=== PATIENT | male | born 1945 | race Caucasian/White ===

== ENCOUNTER → 2016-12-22 | Outpatient (CLI) | payer MEDICARE ==
--- NOTE | 2016-12-22 08:44 | US ---
EXAMINATION TYPE: US duplex aorta DATE OF EXAM: 12/22/2016 COMPARISON: NONE CLINICAL HISTORY: 71-year-old male Z13.6 Screening For Cardiovascular Disorder. TECHNIQUE: Multiple sonographic images of the abdominal aorta are obtained. FINDINGS: EXAM MEASUREMENTS: Abdominal Aorta: Proximal: 2.0cm Transverse Mid: 2.0cm Transverse, mild fusiform dilatation. Distal: 2.0cm Transverse Bifurcation: Right JOSHUA = 1.1cm Transverse; Left JOSHUA = 1.1cm Transverse Intimal wall thickening with calcification is noted throughout the aorta and common iliac arteries. IMPRESSION: Atherosclerotic changes with mild fusiform dilatation of the mid abdominal aorta up to 2.0 cm. Howeve r, there is no significant ectasia or aneurysm.
== END | disposition home or self-care (01) ==
LOC: RADUSWWP 08:08
PROVIDERS: ATTEND Internal Medicine
DX: I70.0 Atherosclerosis of aorta (principal)
CPT/HCPCS: 93979

== ENCOUNTER → 2020-01-22 | Outpatient (CLI) | payer MEDICARE ==
[~2020-01-22] MED LIST: DOBUTamine DRIP for NUC MED 500 MG in DEXTROSE/WATER 1 250ML.BAG IV ONE
[2020-01-22 10:16] LABS: Basophils % (A) 0 %; Eosinophils # (A) 0.1 k/uL (0-0.7); Eosinophils % (A) 2 %; HCT 53.7 % (39.0-53.0); HGB 16.5 gm/dL (13.0-17.5); Lymphocytes # (A) 1.6 k/uL (1.0-4.8); Lymphocytes % (A) 22 %; MCH 31.9 pg (25.0-35.0); MCHC 30.8 g/dL (31.0-37.0); MCV 103.5 fL (80.0-100.0); Macrocytosis Slight; Mean Platelet Volume 7.1; Monocytes # (A) 0.5 k/uL (0-1.0); Monocytes % (A) 7 %; Neutrophils % (A) 68 %; Platelet Count 263 k/uL (150-450); RBC 5.19 m/uL (4.30-5.90); RDW 13.8 % (11.5-15.5); WBC 7.3 k/uL (3.8-10.6)
[2020-01-22 10:29] LABS: Albumin 4.4 g/dL (3.5-5.0); Calcium 9.6 mg/dL (8.4-10.2); Potassium 4.7 mmol/L (3.5-5.1); Total Bilirubin 0.9 mg/dL (0.2-1.3); Uric Acid 5.9 mg/dL (3.5-8.5)
--- NOTE | 2020-01-22 12:49 | ECHOF ---
Referral Reason:R94.31 Abnormal EKG MEASUREMENTS -------- HEIGHT: 175.3 cm WEIGHT: 64.4 kg BP: RVIDd: 3.6 cm (< 3.3) IVSd: 1.2 cm (0.6 - 1.1) LVIDd: 4.2 cm (3.9 - 5.3) LVPWd: 1.3 cm (0.6 - 1.1) IVSs: 1.5 cm LVIDs: 3.0 cm LVPWs: 1.9 cm LA Diam: 3.8 cm (2.7 - 3.8) Ao Diam: 3.4 cm (2.0 - 3.7) AV Cusp: 1.7 cm (1.5 - 2.6) MV EXCURSION: 17.701 mm (> 18.000) MV EF SLOPE: 81 mm/s (70 - 150) EPSS: 2.2 cm MV E Juancho: 0.67 m/s MV DecT: 289 ms MV A Juancho: 1.06 m/s MV E/A Ratio: 0.63 RAP: 5.00 mmHg RVSP: 34.32 mmHg FINDINGS -------- Sinus rhythm. This was a technically adequate study. The left ventricular size is normal. There is mild concentric left ventricular hypertrophy. Overa ll left ventricular systolic function is normal with, an EF between 55 - 60 %. The right ventricle is mildly enlarged. The left atrium is normal in size. The right atrium is normal in size. Interatrial and interventricular septum intact. The aortic valve is trileaflet and appears structurally normal. There is trace to mild mitral regurgitation. Mild tricuspid regurgitation present. There is borderline pulmonary hypertension. The right ventr icular systolic pressure, as measured by Doppler, is 34.32mmHg. Trace/mild (physiologic) pulmonic regurgitation. The aortic root size is normal. Normal inferior vena cava with normal inspiratory collapse consistent with estimated right atrial pre ssure of 5 mmHg. There is no pericardial effusion. CONCLUSIONS -------- 1. The left ventricular size is normal. 2. There is mild concentric left ventricular hypertrophy. 3. Overall left ventricular systolic function is normal with, an EF between 55 - 60 %. 4. The right ventricle is mildly enlarged. 5. There is trace to mild mitral regurgitation. 6. Mild tricuspid regurgitation present. 7. There is borderline pulmonary hypertension. 8. The right ventricular systolic pressure, as measured by Doppler, is 34.32mmHg. 9. Trace/mild (physiologic) pulmonic regurgitation. 10. There is no pericardial effusion. GRINDER AND HONER OPERATOR AUTOMATIC: Meagan Willard RDCS
--- NOTE | 2020-01-22 14:08 | ECHOS ---
STRESS ECHOCARDIOGRAM INDICATIONS: Abnormal EKG MEDICATIONS: Metformin, lorazepam, labetalol, atorvastatin, irbesartan, minoxidil. BASELINE HEART RATE: 80 BASELINE BLOOD PRESSURE: 140/66 MAXIMUM HEART RATE: 124 MAXIMUM BLOOD PRESSURE: 158/40 85% MPHR: 124 100% MPHR: 146 MAXIMUM STAGE REACHED: 4 TOTAL EXERCISE TIME: 12:45 CLINICAL INFORMATION: Abnormal EKG Baseline EKG revealed normal sinus rhythm with isolated PVCs and nonspecific ST and T- wave changes with dobutamine administration. The heart rate went up from 80 to 124 beats per minute which is 85% of predicted maximal. Patient did not have any significant symptoms. EKG remained inconclusive with nonspecific ST and T-wave changes and rare isolated PVCs were noted. This is therefore an inconclusive dobutamine stress test by EKG criteria with resting EKG changes and no subjective symptoms of angina. Baseline echo images revealed normal wall motion and wall thickening of all segments. With dobutamine administration, there was progressive increase in contractility noted in all segments suggesting that there is no evidence of stress-induced ischemia. FINAL IMPRESSION: 1. By EKG criteria, this is an inconclusive dobutamine stress test because of resting EKG changes. 2. Normal dobutamine stress echocardiogram without evidence of ischemia. MMODL / IJN: [id number] /
[2020-01-23 05:33] LABS: Prostate Specific Antigen 3.7 ng/mL (0.0-6.5)
== END | disposition home or self-care (01) ==
LOC: RADNMMAIN 09:37
PROVIDERS: ATTEND Internal Medicine
DX: I08.1 Rheumatic disorders of both mitral and tricuspid valves (principal); I37.1 Nonrheumatic pulmonary valve insufficiency; R03.0 Elevated blood-pressure reading, without diagnosis of hypertension; R94.31 Abnormal electrocardiogram [ECG] [EKG]; E55.9 Vitamin D deficiency, unspecified; I10 Essential (primary) hypertension; Z12.5 Encounter for screening for malignant neoplasm of prostate
CPT/HCPCS: 93306; 93351; 84153; 80061; 80053; 84550; 85025; 82306; J1250

== ENCOUNTER → 2022-01-26 | Outpatient (CLI) | payer MEDICARE ==
[2022-01-26 11:32] LABS: Chol/HDL Ratio 3.17 Ratio; LDL Cholesterol,Calculated 85.5 mg/dL (0.0-131.0)
== END | disposition home or self-care (01) ==
LOC: LABWHC1 06:59
PROVIDERS: ATTEND Internal Medicine Interventional Cardiology
DX: E78.2 Mixed hyperlipidemia (principal)
CPT/HCPCS: 36415; 80061

== ENCOUNTER → 2022-02-04 | Outpatient (CLI) | payer MEDICARE ==
--- NOTE | 2022-02-05 14:10 | CA ---
Transthoracic Echo Report Name: Lc Tijerina Age: 76 Gender: M : 1945 Exam Date: 02/04/2022 13:27 Exam Location: [place] [facility] Ht (in): 69 Wt (lb): 155 Ordering Physician: Aldo Pugh MD Attending/Referring Phys: Ty Thao PAC [employer] Trader Kamala Olson RDCS Procedure CPT: Indications: hypertention Cardiac Hx: Technical Quality: Fair Contrast 1: Total Dose (mL): Contrast 2: Total Dose (mL): MEASUREMENTS (Male / Female) Normal Values 2D ECHO LV Diastolic Diameter PLAX 3.9 cm 4.2 - 5.9 / 3.9 - 5.3 cm LV Systolic Diameter PLAX 2.6 cm IVS Diastolic Thickness 1.5 cm 0.6 - 1.0 / 0.6 - 0.9 cm LVPW Diastolic Thickness 1.4 cm 0.6 - 1.0 / 0.6 - 0.9 cm LV Relative Wall Thickness 0.7 RV Internal Dim ED PLAX 3.1 cm LA Volume 23.5 cm??? 18 - 58 / 22 - 52 cm??? M-MODE Aortic Root Diameter MM 2.8 cm LA Systolic Diameter MM 3.0 cm LA Ao Ratio MM 1.1 AV Cusp Separation MM 1.8 cm DOPPLER AV Peak Velocity 134.5 cm/s AV Peak Gradient 7.2 mmHg LVOT Peak Velocity 89.0 cm/s LVOT Peak Gradient 3.2 mmHg MV Area PHT 3.7 cm??? Mitral E Point Velocity 69.6 cm/s Mitral A Point Velocity 115.5 cm/s Mitral E to A Ratio 0.6 MV Deceleration Time 205.1 ms MV E' Velocity 7.1 cm/s Mitral E to MV E' Ratio 9.7 TR Peak Velocity 240.7 cm/s TR Peak Gradient 23.2 mmHg Right Ventricular Systolic Press 25.9 mmHg FINDINGS Left Ventricle Moderately increased left ventricular wall thickness. Normal left ventricular systolic function with no obvious regional wall motion abnormalities. Left ventricular ejection fraction is estimated at 55-60 %. Normal left ventricular diastolic filling pattern. Right Ventricle Normal right ventricular size and function. Right ventricular systolic pressure within normal limits. Right Atrium Normal right atrial size. Left Atrium Normal left atrial size. Mitral Valve Structurally normal mitral valve. No evidence for mitral valve prolapse. No mitral stenosis. Trace to mild mitral regurgitation. Mitral annular calcification. Aortic Valve Trileaflet aortic valve. No aortic valve stenosis or regurgitation. Aortic valve sclerosis. Tricuspid Valve Structurally normal tricuspid valve. Mild tricuspid regurgitation. Pulmonic Valve Structurally normal pulmonic valve. Trace pulmonic regurgitation. Pericardium No pericardial effusion. Aorta Normal size aortic root and proximal ascending aorta. CONCLUSIONS Normal LV systolic function Trace mitral regurgitation Mild tricuspid regurgitation Previewed by: Dr. Asad Ludwig MD (Electronically Signed) Final Date: 05 February 2022 14:09
== END | disposition home or self-care (01) ==
LOC: RADECHMAIN 12:31
PROVIDERS: ATTEND Family Medicine
DX: I08.1 Rheumatic disorders of both mitral and tricuspid valves (principal); I16.0 Hypertensive urgency
CPT/HCPCS: 93306

== ENCOUNTER → 2022-06-21 | Outpatient (CLI) | payer MEDICARE ==
[2022-06-21 15:31] LABS: HCT 50.9 % (39.6-50.0); MCH 31.1 pg (27.0-32.0); MCHC 31.4 g/dL (32.0-37.0); Mean Platelet Volume 10.4 fL (9.5-12.2); NRBC Per 100 WBC 0 /100 WBCS (0.0-0.0); Platelet Count 202 X 10*3/uL (140-440); RBC 5.14 X 10*6/uL (4.40-5.60); RDW 13.2 % (11.5-14.5); WBC 7.09 X 10*3/uL (4.50-10.00)
[2022-06-21 15:48] LABS: African American GFR (CKD) 91.7 (60.0-200.0); Anion Gap 10.9 mmol/L (10.00-18.00); Blood Urea Nitrogen 19.7 mg/dL (9.0-27.0); Carbon Dioxide 26.6 mmol/L (20.0-27.5); Non-African American GFR(CKD) 79.2 (60.0-200.0); Potassium 4.5 mmol/L (3.5-5.5)
== END | disposition home or self-care (01) ==
LOC: LABPAT 07:59
PROVIDERS: ATTEND Internal Medicine Interventional Cardiology
DX: Z01.818 Encounter for other preprocedural examination (principal); R94.39 Abnormal result of other cardiovascular function study
CPT/HCPCS: 36415; 80051; 82565; 84520; 85027

== ENCOUNTER → 2022-12-19 | Outpatient (CLI) | payer MEDICARE ==
[2022-12-19 16:24] LABS: ALT 24 U/L (10-49); AST 11 U/L (14-35); Albumin 5.1 d/dL (3.8-4.9); Albumin/Globulin Ratio 2.12 Ratio (1.60-3.17); Alkaline Phosphatase 53 U/L (41-126); BUN/Creat Ratio 24.54 Ratio (12.00-20.00); Blood Urea Nitrogen 31.9 mg/dL (9.0-27.0); Calcium 10.9 mg/dL (8.7-10.3); Carbon Dioxide 27.9 mmol/L (21.6-31.8); Chloride 100 mmol/L (96-109); Globulin 2.4 d/dL (1.6-3.3); Glucose 165 mg/dL (70-110); Potassium 5.5 mmol/L (3.5-5.5); Sodium 141 mmol/L (135-145); Total Bilirubin 0.4 mg/dL (0.3-1.2); Total Protein 7.5 d/dL (6.2-8.2)
[2022-12-19 17:36] LABS: Basophils # (A) 0.05 X 10*3/uL (0.00-0.10); Basophils % (A) 0.5 %; Eosinophils # (A) 0.17 X 10*3/uL (0.04-0.35); Eosinophils % (A) 1.7 %; HCT 50.2 % (39.6-50.0); HGB 16.2 d/dL (13.0-17.0); Lymphocytes # (A) 1.36 X 10*3/uL (0.90-5.00); Lymphocytes % (A) 13.9 %; MCH 32.4 pg (27.0-32.0); MCHC 32.3 d/dL (32.0-37.0); MCV 100.4 FL (80.0-97.0); Mean Platelet Volume 10.3 FL (9.5-12.2); Monocytes # (A) 0.79 X 10*3/uL (0.20-1.00); Monocytes % (A) 8.1 %; NRBC Per 100 WBC 0 X 10*3/uL (0.00-0.01); Neutrophils # (A) 7.35 X 10*3/uL (1.80-7.70); Neutrophils % (A) 75.4 %; Platelet Count 254 X 10*3/uL (140-440); RDW 13.2 % (11.5-14.5); WBC 9.76 X 10*3/uL (4.50-10.00)
[2022-12-19 17:38] LABS: INR <0.93 sec (0.93-1.11); Prothrombin Time 9.9 sec (9.9-11.9)
== END | disposition home or self-care (01) ==
LOC: LABPAT 08:55
PROVIDERS: ATTEND Surgery
DX: Z01.812 Encounter for preprocedural laboratory examination (principal); I73.9 Peripheral vascular disease, unspecified; R94.31 Abnormal electrocardiogram [ECG] [EKG]
CPT/HCPCS: 36415; 80053; 85025; 85610; 86850; 86900; 86901; 93005

== ENCOUNTER → 2023-01-18 | Outpatient (CLI) | payer MEDICARE ==
[2023-01-18 20:06] LABS: ALT 27 U/L (10-49); AST 10 U/L (14-35); Albumin 4.8 d/dL (3.8-4.9); Alkaline Phosphatase 48 U/L (41-126); BUN/Creat Ratio 23.57 Ratio (12.00-20.00); C-Peptide 7.65 ng/mL (0.81-3.85); Calcium 10.5 mg/dL (8.7-10.3); Chloride 100 mmol/L (96-109); Globulin 2.4 d/dL (1.6-3.3); Glucose 123 mg/dL (70-110); Sodium 140 mmol/L (135-145); Total Bilirubin 0.3 mg/dL (0.3-1.2); Total Protein 7.2 d/dL (6.2-8.2)
== END | disposition home or self-care (01) ==
LOC: LABWHC1 13:14
PROVIDERS: ATTEND Internal Medicine Endocrinology, Diabetes & Metabolism
DX: E11.65 Type 2 diabetes mellitus with hyperglycemia (principal)
CPT/HCPCS: 36415; 80053; 83519; 84443; 84681

== ENCOUNTER → 2024-06-14 | Outpatient (CLI) | payer MEDICARE ==
--- NOTE | 2024-06-14 11:37 | CTL ---
EXAMINATION TYPE: CT Low Dose Lung DATE OF EXAM ORDERED: 06/14/2024 COMPARISON: None CLINICAL INDICATION: Male, 78 years old with history of Z12.2 Screening; Z87.891 Former smoker; PHH, Former smoker, .5 ppd x 60 years. Quit x 3 months ago., Lung cancer screening, History of Smoking/tob acco use. TECHNIQUE: Low dose computed tomography scan was performed through the chest at 1 mm thick sections a nd reconstructed images in multiple planes at 1 mm and [address] DLP: [address] CTDI: 2.14 mGy Automated exposure control for dose reduction was used. CT DIAGNOSTIC QUALITY: Satisfactory FINDINGS: Nodules: No distinct pulmonary nodule. LUNGS: COPD: Severity: None Fibrosis: Severity: None Lymph nodes: None Other findings: Patchy consolidative opacities throughout the left upper lobe and lingula. RIGHT PLEURAL SPACE: Effusion: None Calcification: None Thickening: None Pneumothorax: None LEFT PLEURAL SPACE: Effusion: None Calcification: None Thickening: None Pneumothorax: None HEART: Heart Size: Normal Coronary Calcification: None Pericardial Effusion: None OTHER FINDINGS: Upper abdomen: None Bony thorax: Bilateral AC joint arthropathy. Multilevel degenerative disc disease. [facility] of the thorac ic spine. No aggressive osseous lesion. Supraclavicular region: None Other: Moderate atherosclerotic calcification of the aorta and its branches. IMPRESSION: Patchy consolidative opacity throughout the left upper lobe and lingula. No distinct pulmonary nodule however underlying nodule is not excluded. Findings suggest pneumonia. Recommend follow-up CT in one month after treatment. CT LUNG RAD AND CT CHEST RECOMMENDATION: Lung Rad 0 Incomplete S Modifier (other clinically significant findings): None [facility], , 06/14/2024 11:35 AM
== END | disposition home or self-care (01) ==
LOC: RADCTMAIN 08:58
PROVIDERS: ATTEND Internal Medicine
DX: Z12.2 Encounter for screening for malignant neoplasm of respiratory organs (principal); Z87.891 Personal history of nicotine dependence
CPT/HCPCS: 71271

== ENCOUNTER 2024-06-27 15:31 | Emergency (ER) | payer MEDICARE ==
[2024-06-27 15:48] VITALS: RESP 18
--- NOTE | 2024-06-27 16:20 | ED ---
Fall HPI - General Chief Complaint: Fall Stated Complaint: fell hit head Time Seen by Provider: 06/27/24 16:19 Source: patient Mode of arrival: wheelchair - History of Present Illness Initial Comments: 78-year-old male presenting with chief complaint of head injury. Patient had a slip and fall this afternoon and fell backwards hitting his head. No loss of consciousness. Patient does take a baby aspirin daily with no other blood thinners. He does have a laceration to the back of his head. He denies any other injuries. - Related Data Home Medications Medication Instructions Recorded Confirmed Aspirin 81 mg PO DAILY 06/23/22 Empagliflozin [Jardiance] 25 mg PO DAILY 06/23/22 Metoprolol Tartrate 25 mg PO DAILY 06/23/22 Pioglitazone HCl 45 mg PO DAILY 06/23/22 Rosuvastatin [Crestor] 20 mg PO DAILY 06/23/22 metFORMIN HCL [Glucophage] 850 mg PO DAILY 06/23/22 Allergies Allergy/AdvReac Type Severity Reaction Status Date / Time Sulfa (Sulfonamide AdvReac Rapid Verified 06/27/24 15:48 Antibiotics) Heart Rate Review of Systems ROS Statement: Those systems with pertinent positive or pertinent negative responses have been documented in the HPI. ROS Other: All systems not noted in ROS Statement are negative. Past Medical History Past Medical History: Diabetes Mellitus, GI Bleed, Hypertension, Pneumonia Additional Past Medical History / Comment(s): Pneumonia-1984, possitive occult in 07/08/15 History of Any Multi-Drug Resistant Organisms: None Reported Past Surgical History: Appendectomy Additional Past Surgical History / Comment(s): colonoscopy 07/15/15 with Caitlyn Ellsworth, cyst removed from right thumb, Orthoscopic surgery in left knee with Dr Pagan in the Past Anesthesia/Blood Transfusion Reactions: No Reported Reaction Additional Past Anesthesia/Blood Transfusion Reaction / Comment(s): Never had a blood transfusion Past Psychological History: Anxiety Past Alcohol Use History: None Reported Past Drug Use History: None Reported - Past Family History Mother Additional Family Medical History / Comment(s): Stroke Father Family Medical History: Cancer Additional Family Medical History / Comment(s): Jaw cancer Brother(s) Family Medical History: No Reported History General Exam - General Exam Comments Initial Comments: Visual Physical Exam Vital signs reviewed General: Well-appearing, nontoxic, no acute distress. Head: Normocephalic, atraumatic Eyes: PERRLA, EOMI ENT: Airway patent Chest: Nonlabored breathing Skin: No visual rash, normal skin tone, scalp laceration Neuro: Alert and oriented 3 Musculoskeletal: No gross abnormalities Limitations: no limitations General appearance: alert, in no apparent distress Expanded Head exam: Present: laceration (2 cm laceration to the posterior scalp) Eye exam: Present: normal appearance, PERRL, EOMI. Absent: periorbital swelling Neck exam: Present: normal inspection. Absent: tenderness Respiratory exam: Absent: respiratory distress Cardiovascular Exam: Present: regular rate Extremities exam: Present: normal inspection Neurological exam: Present: alert, oriented X3 Expanded Eye Response: (4) open spontaneously Motor Response: (6) obeys commands Verbal Response: (5) oriented Teresa Total: 15 Psychiatric exam: Present: normal affect, normal mood Course Vital Signs 06/27/24 15:40 Temperature 99.1 F Pulse Rate 78 Respiratory 18 Rate Blood Pressure 107/63 O2 Sat by Pulse 94 L Oximetry Procedures - Laceration Laceration #1 Consent Obtained: verbal consent Indication: laceration Site: scalp Size (cm): 2 Description: linear Depth: simple, single layer Pre-repair: wound explored Type of Sutures: other ([place]) Number of Sutures: 3 Patient Tolerated Procedure: well Medical Decision Making - Medical Decision Making I performed the quick note portion of this visit, electronically signed Kyra Glez PA-C Was pt. sent in by a medical professional or institution ([facility], [facility], urgent care, hospital, or fdc...) When possible be specific @ -No Did you speak to anyone other than the patient for history (EMS, parent, family, police, friend...)? What history was obtained from this source @ - Did you review nursing and triage notes (agree or disagree)? Why? @ -I reviewed and agree with nursing and triage notes Were old charts reviewed (outside hosp., previous admission, EMS record, old EKG, old radiological studies, urgent care reports/EKG's, fdc records)? Report findings @ -No old charts were reviewed Differential Diagnosis (chest pain, altered mental status, abdominal pain women, abdominal pain men, vaginal bleeding, weakness, fever, dyspnea, syncope, headache, dizziness, GI bleed, back pain, seizure, CVA, palpatations, mental health, musculoskeletal)? @ -Differential includes uncomplicated head injury, concussion, fracture, hemorrhage, not an all-inclusive list EKG interpreted by me (3pts min.). @ -As above X-rays interpreted by me (1pt min.). @ -None done CT interpreted by me (1pt min.). @ -CT shows no acute intracranial process. Right scalp edema no evidence of fracture or acute intracranial process. Nonspecific white matter changes likely secondary to chronic small vessel ischemic disease. No evidence of cervical spine fracture. Mild to moderate multilevel degenerative disc disease. Severe atherosclerosis of the carotid bifurcations correlated with carotid Doppler. Left lung apex airspace opacities correlate for pneumonia U/S interpreted by me (1pt. min.). @ -None done What testing was considered but not performed or refused? (CT, X-rays, U/S, labs)? Why? @ -None What meds were considered but not given or refused? Why? @ -None Did you discuss the management of the patient with other professionals (professionals i.e. , PA, [facility], lab, RT, psych nurse, social economist, kennel attendant, teacher, digital marketing officer, case packer and sealer)? Give summary @ -No Was smoking cessation discussed for >3mins.? @ -No Was critical care preformed (if so, how long)? @ -No Were there social determinants of health that impacted care today? How? (Homelessness, low income, unemployed, alcoholism, drug addiction, transportation, low edu. Level, literacy, decrease access to med. care, halfway, rehab)? @ -No Was there de-escalation of care discussed even if they declined (Discuss DNR or withdrawal of care, Hospice)? DNR status @ -No What co-morbidities impacted this encounter? (DM, HTN, Smoking, COPD, CAD, Canc er, CVA, ARF, Chemo, Hep., AIDS, mental health diagnosis, sleep apnea, morbid obesity)? @ -None Was patient admitted / discharged? Hospital course, mention meds given and route, prescriptions, significant lab abnormalities, going to OR and other pertinent info. @ -78-year-old male presenting with chief complaint of head injury. Patient had a slip and fall and hit the back of his head. No loss of consciousness. He takes aspirin and no other blood thinners. History and physical examination are conducted. Patient does have a laceration to the back of his scalp. Tetanus is updated and laceration is repaired using avinash. CT is negative for acute intracranial process or cervical spine fracture. Patient is noted to have some left upper lobe opacities. reports that the patient had a CT scan recently ordered by his PCP and was started on antibiotics yesterday. and patient are educated on today's findings and supportive management at home. Follow-up with PCP. Report back to ER with any new or worsening symptoms. Discussed return parameters and answered all questions. Patient conveyed verbal understanding and agreed to the plan. I discussed this case in detail with my attending Dr. Perales Undiagnosed new problem with uncertain prognosis? @ -No Drug Therapy requiring intensive monitoring for toxicity (Heparin, Nitro, Insulin, Cardizem)? @ -No Were any procedures done? @ -Laceration repair Diagnosis/symptom? @ -Head injury, scalp laceration Acute, or Chronic, or Acute on Chronic? @ -Acute Uncomplicated (without systemic symptoms) or Complicated (systemic symptoms)? @ -Uncomplicated Side effects of treatment? @ -No Exacerbation, Progression, or Severe Exacerbation? @ -No Poses a threat to life or bodily function? How? (Chest pain, [place], [place], pneumonia, PE, COPD, DKA, ARF, appy, cholecystitis, CVA, Diverticulitis, Homicidal, Suicidal, threat to staff... and all critical care pts) @ -Unlikely Disposition Clinical Impression: Head injury, Scalp laceration Disposition: HOME SELF-CARE Condition: Good Instructions (If sedation given, give patient instructions): Head Injury (ED), Head Laceration (ED), Staple Care (ED) Additional Instructions: Follow-up with PCP. Report back to ER with any new or worsening symptoms, including but not limited to vomiting, increased confusion, difficulty arousing the patient from sleep. Keep the wound clean dry and covered. Do not wet the wound for 24 hours, afterwards you may wash regularly with soap and water. Monitor for signs of infection, including but not limited to redness, swelling, warmth, tenderness, discharge, fever. [place] may be removed in 7 to 10 days Is patient prescribed a controlled substance at d/c from ED?: No Referrals: Sherron Dejesus MD [STAFF PHYSICIAN] - 1-2 days Time of Disposition: 17:32
[2024-06-27] MEDS: DIPH,PERTUS(ACELL)TETVAC-LF 0.5 ML VIAL IM ONE (17:10)
--- NOTE | 2024-06-27 17:13 | CT ---
EXAMINATION TYPE: CT brain cspine wo con DATE OF EXAM: 06/27/2024 4:38 PM COMPARISON: None. CLINICAL INDICATION: Male, 78 years old with history of Head injury; pain after fall, laceration to b ack top side of head, pain TECHNIQUE: Brain: Multiple axial CT images of the brain were obtained without IV contrast. Cspine: Axial CT images from the skull base to the inferior aspect of T2 we obtained without intraven ous contrast. Coronal and sagittal reformatted images were also reviewed. . CT DLP: 1309 mGycm, Automated exposure control for dose reduction was used. FINDINGS: Brain: Extra-axial spaces: No abnormal extra-axial fluid collections. Ventricular system: Dilatation in proportion to cerebral atrophy. Cerebral parenchyma: Cerebral atrophy. No acute intraparenchymal hemorrhage or mass effect. The allen -white junction is well differentiated. Scattered hypoattenuating areas are seen within the white mat ter. Cerebellum: Unremarkable. Mass effect: No evidence of midline shift. Intracranial vasculature: Atherosclerotic calcifications of the intracranial vessels. Soft tissues: Normal. Soft tissue swelling over the right scalp vertex. Calvarium/osseous structures: No depressed skull fracture. Paranasal sinuses and mastoid air cells: Clear. Visualized orbits: Orbital contents are intact. Cervical spine: Fracture: None. Osseous structures: Unremarkable Vertebral alignment: Within normal limits. Spinal canal/Neural Foramina: No evidence of significant spinal canal narrowing. No evidence for sign ificant neural foraminal stenosis. Neck soft tissues: Prevertebral soft tissues are within normal limits. Other: The airway is patent. Severe atherosclerosis of the carotid bifurcations. Left lung apex airsp lorene opacities. IMPRESSION: 1. No acute intracranial process. 2. Right scalp edema No evidence of fracture or acute intracranial process. Nonspecific white matter changes, likely secondary to chronic small vessel ischemic disease. 3. No evidence of cervical spine fracture. 4. Mild to moderate multilevel degenerative disc disease. 5. Severe atherosclerosis of the carotid bifurcations correlated with carotid Doppler. 6. Left lung apex airspace opacities correlate for pneumonia. [facility], , 06/27/2024 5:10 PM
[2024-06-27 17:50] VITALS: BP 110/76; PULSE 72; TEMP 98.4
== END 2024-06-27 17:50 | disposition home or self-care (01) ==
LOC: EC 15:31
DX: S01.01XA Laceration without foreign body of scalp, initial encounter (principal); Z88.2 Allergy status to sulfonamides; Z23 Encounter for immunization; Z79.82 Long term (current) use of aspirin; W01.0XXA Fall on same level from slipping, tripping and stumbling without subsequent striking against object, initial encounter
CPT/HCPCS: 12001; 70450; 72125; 90471; 90715; 99283

== ENCOUNTER → 2024-07-16 | Outpatient (CLI) | payer MEDICARE ==
[2024-07-16 12:01] LABS: African American GFR (CKD) 83 (>60 ml/min/1.73 sqM); Blood Urea Nitrogen 34 mg/dL (9-20); Non-African American GFR(CKD) 72 (>60 ml/min/1.73 sqM)
--- NOTE | 2024-07-16 14:07 | CT ---
CT chest with contrast HISTORY: Follow-up lung abnormality. COMPARISON: CT low-dose thorax 06/14/2024. TECHNIQUE: Multiple axial images were obtained through the thorax following IV contrast administratio n. FINDINGS: There has been interval development of complete collapse and consolidation of the left upper lobe simpson sing the suspicion for a postobstructive pneumonitis and possible underlying bronchial lesion and fur ther evaluation is warranted. There is a 7.8 mm subpleural parenchymal nodule in the left lower lobe posteriorly. The right lung is clear. Great vessels the chest are normal and there is no mediastinal or axillary adenopathy. Limited scanning through the upper abdomen reveals no gross abnormality. There are no focal osseous lesions. IMPRESSION: Left lung infiltrate seen on the prior study has progressed into complete collapse and consolidation of the left upper lobe with marked volume loss. The findings are suspicious for postobstructive pneum onitis with possible underlying obstructing bronchial lesion. Suspicious for underlying malignancy an d further evaluation is warranted. [facility], Workstation: [id number] 07/16/2024 2:04 PM
== END | disposition home or self-care (01) ==
LOC: RADCTMAIN 11:11
PROVIDERS: ATTEND Internal Medicine
DX: R91.8 Other nonspecific abnormal finding of lung field (principal)
CPT/HCPCS: 82565; 84520; 71260; 36415; Q9967

== ENCOUNTER 2024-07-22 09:59 | Inpatient (IN) | payer MEDICARE ==
--- NOTE | 2024-07-22 11:01 | ED ---
Extremity Problem HPI - General Chief complaint: Extremity Problem,Nontraumatic Stated complaint: L knee pain Time Seen by Provider: 07/22/24 10:08 Source: patient, RN notes reviewed Mode of arrival: wheelchair Limitations: no limitations - History of Present Illness Initial comments: This is a 78-year-old male who presents to the emergency department for left leg pain. States that it started yesterday. Denies any injuries. Pain starts behind the knee and travels down the leg. This is painful when he tries to walk or move the leg. Not taking any blood thinners. Additionally, he was previously treated for pneumonia. He had a CT scan done on 07/16/2024 as a follow-up from the month prior that was done as a lung cancer screening. He does have an appointment with his PCP later today to review those results. Denies any chest pain or shortness of breath. However, his states that he does not typically complain of those symptoms, even when he is sick. He does have a long smoking history. - Related Data Home Medications Medication Instructions Recorded Confirmed Aspirin 81 mg PO DAILY 06/23/22 07/22/24 Empagliflozin [Jardiance] 25 mg PO DAILY 06/23/22 07/22/24 Rosuvastatin [Crestor] 20 mg PO DAILY 06/23/22 07/22/24 metFORMIN HCL [Glucophage] 850 mg PO BID-W/MEALS 06/23/22 07/22/24 Brimonidine Tartrate [Alphagan P 1 drop BOTH EYES BID 07/22/24 07/22/24 0.2% Ophth Soln] Irbesartan [Avapro] 300 mg PO DAILY 07/22/24 07/22/24 Latanoprostene Bunod [Vyzulta] 1 drop BOTH EYES HS 07/22/24 07/22/24 amLODIPine [Norvasc] 5 mg PO DAILY 07/22/24 07/22/24 glipiZIDE [Glucotrol] 5 mg PO BID-W/MEALS 07/22/24 07/22/24 timoloL [timoloL 0.5% Ophth Soln] 1 drop BOTH EYES HS 07/22/24 07/22/24 Allergies Allergy/AdvReac Type Severity Reaction Status Date / Time Sulfa (Sulfonamide AdvReac Rapid Verified 07/22/24 12:14 Antibiotics) Heart Rate Review of Systems ROS Statement: Those systems with pertinent positive or pertinent negative responses have been documented in the HPI. ROS Other: All systems not noted in ROS Statement are negative. Past Medical History Past Medical History: Diabetes Mellitus, GI Bleed, Hypertension, Pneumonia Additional Past Medical History / Comment(s): Pneumonia-1984, possitive occult in 07/08/15 History of Any Multi-Drug Resistant Organisms: None Reported Past Surgical History: Appendectomy Additional Past Surgical History / Comment(s): colonoscopy 07/15/15 with Caitlyn Ellsworth, cyst removed from right thumb, Orthoscopic surgery in left knee with Dr Pagan in the Past Anesthesia/Blood Transfusion Reactions: No Reported Reaction Additional Past Anesthesia/Blood Transfusion Reaction / Comment(s): Never had a blood transfusion Past Psychological History: Anxiety Past Alcohol Use History: None Reported Past Drug Use History: None Reported - Past Family History Mother Additional Family Medical History / Comment(s): Stroke Father Family Medical History: Cancer Additional Family Medical History / Comment(s): Jaw cancer Brother(s) Family Medical History: No Reported History General Exam Limitations: no limitations General appearance: alert, in no apparent distress Head exam: Present: atraumatic, normocephalic, normal inspection Respiratory exam: Present: normal lung sounds bilaterally. Absent: respiratory distress, wheezes, rales, rhonchi, stridor Cardiovascular Exam: Present: regular rate, normal rhythm Extremities exam: Present: other (Tenderness to palpation in the left popliteal fossa and left calf. Range of motion limited by pain. 2+ DP and PT pulses) Neurological exam: Present: alert, oriented X3, CN II-XII intact Psychiatric exam: Present: normal affect, normal mood Skin exam: Present: warm, dry, intact, normal color. Absent: rash Course Vital Signs 07/22/24 07/22/24 07/22/24 10:00 10:44 12:37 Temperature 97.9 F Pulse Rate 104 H 86 74 Respiratory 18 19 18 Rate Blood Pressure 127/61 119/73 116/51 O2 Sat by Pulse 94 L 92 L 96 Oximetry 07/22/24 13:07 Temperature Pulse Rate 83 Respiratory 17 Rate Blood Pressure 110/54 O2 Sat by Pulse 98 Oximetry Medical Decision Making - Medical Decision Making This is a 78-year-old male who presents to the emergency department for left leg pain. Was pt. sent in by a medical professional or institution? @ -No Did you speak to anyone other than the patient for history? @ -His provided the majority of the history. Did you review nursing and triage notes? @ -I disagree with the triage note that the leg pain pain has been going on for a week. Patient states that it started yesterday. Were old charts reviewed? @ -CT scan of the chest from 07/16/2024 demonstrating collapse and consolidation of the left upper lobe suspicious for postobstructive pneumonitis with possible underlying bronchial lesion. Findings are suspicious for underlying malignancy. Differential Diagnosis? @ -Leg fracture, leg sprain, DVT, PVD, arterial insufficiency, iliac artery aneurysm, cellulitis, compartment syndrome, tendinopathy, nerve entrapment, piriformis syndrome, osteoarthritis, rhabdomyolysis, myositis, cramping from an electrolyte imbalance, this is not meant to be an all inclusive list. EKG interpreted by me (3pts min.)? @ -EKG interpreted by me demonstrating the following: Sinus rhythm. Ventricular rate 74 bpm, NH interval 165 ms, QRS duration 98 ms, QTc 424 ms. X-rays interpreted by me (1pt min.)? @ -Chest x-ray obtained. My interpretation identifies collapse of the left upper lobe. CT interpreted by me (1pt min.)? @ -Not obtained U/S interpreted by me (1pt. min.)? @ -Duplex ultrasound of the left lower extremity obtained. My interpretation identifies no evidence of a DVT. Ultrasound of the soft tissue of the left lower extremity obtained. My interpretation identifies a suspected Sanchez's cyst. What testing was considered but not performed? (CT, X-rays, U/S, labs)? Why? @ -None What meds were considered but not given? Why? @ -None Did you discuss the management of the patient with other professionals? @ -Yes, Dr. Dejesus, who accepts the patient for admission. Did you reconcile home meds? @ -Yes Was smoking cessation discussed for >3mins.? @ -I discussed smoking cessation for greater than 3 minutes. The risk of smoking were discussed with the patient including but not limited to risks of cancer, stroke, coronary artery disease and COPD. Also discussed with patient were multiple methods of quitting smoking. Lastly we discussed the financial cost of smoking. Was critical care preformed (if so, how long)? @ -No Were there social determinants of health that impacted care today? How? (Homelessness, low income, unemployed, alcoholism, drug addiction, transportation, low edu. Level, literacy, decrease access to med. care, assisted, rehab)? @ -No Was there de-escalation of care discussed even if they declined? (Discuss DNR or withdrawal of care, Hospice)? @ -No What co-morbidities impacted this encounter? (DM, HTN, Smoking, COPD, CAD, Cancer, CVA, Hep., AIDS, mental health diagnosis, sleep apnea, morbid obesity)? @ -Smoking, DM, HTN Was patient admitted / discharged? @ -Admitted. Patient had initially presented for left leg pain, however he had an outpatient CT scan of the chest from 07/16/2024 that he was going to review with his PCP today. I was able to review this in our system and it demonstrated that the left lung infiltrate from the prior study progressed into complete collapse and consolidation of the left upper lobe with marked volume loss. Findings are suspicious for postobstructive pneumonitis with possible underlying obstructing bronchial lesion. Advised that this is suspicious for malignancy and further evaluation is warranted. I spoke with patient's PCP regarding these findings and he was agreeable to admission with pulmonology consult. Duplex ultrasound of the left lower extremity was obtained for the left leg pain. No evidence of a DVT was identified. He does have an area of fluid measuring approximately 4 cm at the posterior tibial vein. They advised further dedicated soft tissue ultrasound. Soft tissue ultrasound demonstrates a 3.5 cm Sanchez's cyst as well as a fluid collection at the medial calf interposed between the medial head gastrocnemius and soleus suggestive of a Sanchez's cyst rupture versus concurrent tennis leg. Lab work obtained as well demonstrating a WBC of 10.6 and CRP of 18.8. Patient admitted to medicine for the abnormal CT scan of the chest demonstrating collapse and consolidation of the left upper lobe with postobstructive pneumonitis and possible malignancy. He was started on the pneumonia protocol with ceftriaxone and azithromycin in the event there is an infectious component. Consult placed for pulmonology. Case discussed with ED attending Dr. Campos. Undiagnosed new problem with uncertain prognosis? @ -None Drug Therapy requiring intensive monitoring for toxicity (Heparin, Nitro, Insulin, Cardizem)? @ -None Were any procedures done? @ -None Diagnosis/symptom? @ -Postobstructive pneumonitis, collapse of the left upper lobe, abnormal CT scan Acute, or Chronic, or Acute on Chronic? @ -Acute Uncomplicated (without systemic symptoms) or Complicated (systemic symptoms)? @ -Uncomplicated Side effects of treatment? @ -None Exacerbation, Progression, or Severe Exacerbation] @ -Not applicable Poses a threat to life or bodily function? @ -Yes, can lead to respiratory compromise - Lab Data Result diagrams: 07/22/24 11:55 07/22/24 11:55 Lab Results 07/22/24 07/22/24 07/22/24 Range/Units 11:14 11:55 11:55 WBC 10.66 H (4.50-10.00) 10*3/uL RBC 3.66 L (4.40-5.60) 10*6/uL Hgb 10.4 L (13.0-17.0) g/dL Hct 32.4 L (39.6-50.0) % MCV 88.5 (80.0-97.0) fL MCH 28.4 (27.0-32.0) pg MCHC 32.1 (32.0-37.0) g/dL Plt Count 324 (140-440) 10*3/uL MPV 9.4 L (9.5-12.2) fL Immature Gran % (Auto) 0.4 % Neutrophils % 80.9 % Lymphocytes % 8.2 % Monocytes % 9.4 % Eosinophils % 0.8 % Basophils % 0.3 % Immature Gran # 0.04 (0.00-0.04) 10*3/uL Neutrophils # 8.63 H (1.80-7.70) 10*3/uL Lymphocytes # 0.87 L (0.90-5.00) 10*3/uL Monocytes # 1.00 (0.20-1.00) 10*3/uL Eosinophils # 0.09 (0.04-0.35) 10*3/uL Basophils # 0.03 (0.00-0.10) 10*3/uL PT 10.4 (10.0-12.5) sec INR 0.9 (<1.2) APTT 23.5 (22.0-30.0) sec Sodium (137-145) mmol/L Potassium (3.5-5.1) mmol/L Chloride (98-107) mmol/L Carbon Dioxide (22-30) mmol/L Anion Gap mmol/L BUN (9-20) mg/dL Creatinine (0.66-1.25) mg/dL Est GFR (CKD-EPI)AfAm (>60 ml/min/1.73 sqM) Est GFR (CKD-EPI)NonAf (>60 ml/min/1.73 sqM) Glucose (74-99) mg/dL Plasma Lactic Acid Chavez (0.7-2.0) mmol/L Calcium (8.4-10.2) mg/dL Total Bilirubin (0.2-1.3) mg/dL AST (17-59) U/L ALT (4-49) U/L Alkaline Phosphatase (38-126) U/L C-Reactive Protein (<1.0) mg/dL Total Protein (6.3-8.2) g/dL Albumin (3.5-5.0) g/dL Influenza Type A (PCR) Not Detected (Not Detectd) Influenza Type B (PCR) Not Detected (Not Detectd) RSV (PCR) Not Detected (Not Detectd) SARS-CoV-2 (PCR) Not Detected (Not Detectd) 07/22/24 07/22/24 Range/Units 11:55 11:55 WBC (4.50-10.00) 10*3/uL RBC (4.40-5.60) 10*6/uL Hgb (13.0-17.0) g/dL Hct (39.6-50.0) % MCV (80.0-97.0) fL MCH (27.0-32.0) pg MCHC (32.0-37.0) g/dL Plt Count (140-440) 10*3/uL MPV (9.5-12.2) fL Immature Gran % (Auto) % Neutrophils % % Lymphocytes % % Monocytes % % Eosinophils % % Basophils % % Immature Gran # (0.00-0.04) 10*3/uL Neutrophils # (1.80-7.70) 10*3/uL Lymphocytes # (0.90-5.00) 10*3/uL Monocytes # (0.20-1.00) 10*3/uL Eosinophils # (0.04-0.35) 10*3/uL Basophils # (0.00-0.10) 10*3/uL PT (10.0-12.5) sec INR (<1.2) APTT (22.0-30.0) sec Sodium 136 L (137-145) mmol/L Potassium 4.8 (3.5-5.1) mmol/L Chloride 102 (98-107) mmol/L Carbon Dioxide 23 (22-30) mmol/L Anion Gap 11 mmol/L BUN 39 H (9-20) mg/dL Creatinine 0.92 (0.66-1.25) mg/dL Est GFR (CKD-EPI)AfAm >90 (>60 ml/min/1.73 sqM) Est GFR (CKD-EPI)NonAf 80 (>60 ml/min/1.73 sqM) Glucose 150 H (74-99) mg/dL Plasma Lactic Acid Chavez 0.8 (0.7-2.0) mmol/L Calcium 9.2 (8.4-10.2) mg/dL Total Bilirubin 0.4 (0.2-1.3) mg/dL AST 12 L (17-59) U/L ALT 11 (4-49) U/L Alkaline Phosphatase 65 (38-126) U/L C-Reactive Protein 18.8 H (<1.0) mg/dL Total Protein 6.6 (6.3-8.2) g/dL Albumin 3.5 (3.5-5.0) g/dL Influenza Type A (PCR) (Not Detectd) Influenza Type B (PCR) (Not Detectd) RSV (PCR) (Not Detectd) SARS-CoV-2 (PCR) (Not Detectd) - Radiology Data Radiology results: report reviewed, image reviewed Disposition Clinical Impression: Left upper lobe consolidation, Postobstructive pneumonia, Abnormal chest CT, Nicotine dependence Disposition: ADMITTED IP TO THIS HOSP
--- NOTE | 2024-07-22 11:05 | US ---
EXAMINATION TYPE: US venous doppler duplex LE DATE OF EXAM: 07/22/2024 10:55 AM COMPARISON: NONE CLINICAL INDICATION: Male, 78 years old with history of Leg pain; Left knee pain. On blood thinners. Bilateral leg stent placed at fem per patient x about 6 weeks ago. Fell x 3 weeks ago. Pain TECHNIQUE: The lower extremity deep venous system is examined utilizing real time linear array sonog toshia with graded compression, color doppler sonography, and spectral doppler. SIDE PERFORMED: Left FINDINGS: VESSELS IMAGED: Common Femoral Vein Deep Femoral Vein Greater Saphenous Vein * Femoral Vein Popliteal Vein Small Saphenous Vein * Proximal Calf Veins Posterior tibial veins (* superficial vessels) Left Leg: Negative for DVT, Color Doppler imaging shows patency of the vessels. Spectral waveforms a re within normal limits. Fluid measuring approximately 4 cm seen at PTV Veins area IMPRESSION: 1. No evidence for DVT within the left lower extremity. 2. Area of fluid measuring approximately 4 cm noted at the posterior tibial vein level. Consider furt her dedicated soft tissue ultrasound assessment in order to determine its relation to the Achilles te ndon, calf musculature, and popliteal fossa. [facility], , 07/22/2024 11:02 AM
[2024-07-22] MEDS ORDERED: ONDANSETRON 4 MG/2 ML VIAL IVP PRN (11:10)
[2024-07-22] MEDS ORDERED: HYDROcodone/APAP 5-325MG 1 EACH TAB PO PRN (11:10)
[2024-07-22] MEDS ORDERED: ACETAMINOPHEN TAB 325 MG TAB PO PRN (11:10)
[2024-07-22] MEDS ORDERED: MORPHINE SULFATE 4 MG/ML SYRINGE IV PRN (11:10)
[2024-07-22] MEDS ORDERED: NALOXONE 0.4 MG/ML 1 ML VIAL IV PRN (11:10)
[2024-07-22 12:05] LABS: Basophils # (A) 0.03 10*3/uL (0.00-0.10); Basophils % (A) 0.3 %; Eosinophils # (A) 0.09 10*3/uL (0.04-0.35); Eosinophils % (A) 0.8 %; HCT 32.4 % (39.6-50.0); HGB 10.4 g/dL (13.0-17.0); Lymphocytes # (A) 0.87 10*3/uL (0.90-5.00); Lymphocytes % (A) 8.2 %; MCH 28.4 pg (27.0-32.0); MCHC 32.1 g/dL (32.0-37.0); MCV 88.5 fL (80.0-97.0); Mean Platelet Volume 9.4 fL (9.5-12.2); Monocytes % (A) 9.4 %; Neutrophils # (A) 8.63 10*3/uL (1.80-7.70); Neutrophils % (A) 80.9 %; Platelet Count 324 10*3/uL (140-440); RBC 3.66 10*6/uL (4.40-5.60); WBC 10.66 10*3/uL (4.50-10.00)
[2024-07-22 12:16] LABS: INR 0.9 (<1.2); Partial Thromboplastin Time 23.5 sec (22.0-30.0); Prothrombin Time 10.4 sec (10.0-12.5)
[2024-07-22 12:20] LABS: ALT 11 U/L (4-49); AST 12 U/L (17-59); African American GFR (CKD) >90 (>60 ml/min/1.73 sqM); Albumin 3.5 g/dL (3.5-5.0); Alkaline Phosphatase 65 U/L (38-126); Anion Gap 11 mmol/L; Blood Urea Nitrogen 39 mg/dL (9-20); Calcium 9.2 mg/dL (8.4-10.2); Carbon Dioxide 23 mmol/L (22-30); Chloride 102 mmol/L (98-107); Glucose 150 mg/dL (74-99); Non-African American GFR(CKD) 80 (>60 ml/min/1.73 sqM); Potassium 4.8 mmol/L (3.5-5.1); Sodium 136 mmol/L (137-145); Total Bilirubin 0.4 mg/dL (0.2-1.3); Total Protein 6.6 g/dL (6.3-8.2)
[2024-07-22 12:27] LABS: Influenza A Not Detected (Not Detectd); Influenza B Not Detected (Not Detectd); RSV Not Detected (Not Detectd)
--- NOTE | 2024-07-22 12:27 | US ---
EXAMINATION TYPE: US extremity nonvasc mass LT DATE OF EXAM: 07/22/2024 COMPARISON: NONE CLINICAL INDICATION: Male, 78 years old with history of Leg pain, abnormal duplex US; fluid collectio n noted on doppler US same day. Patient with history of fall one week ago. TECHNIQUE: several images taken at area of concern, medial popliteal fossa and medial calf FINDINGS: The patient indicates pain behind the right knee. There is an underlying complex Sanchez's c yst here measuring 3.4 x 3.2 x 1.0 cm. In addition, along the medial calf, there is an elongated fluid collection measuring 12.3 cm long and up to 1 cm thick. This seems to be interposed between the medial head gastrocnemius and soleus muscu lature. IMPRESSION: 1. Small to moderate-sized 3.4 cm Sanchez's cyst at the site of patient's pain. 2. Additional elongated fluid collection measuring up to 12.3 cm long at the medial calf interposed b etween the medial head gastrocnemius and soleus. Possibility includes rupture of the Sanchez's cyst wit h inferiorly tracking fluid versus a concurrent tennis leg (plantaris tear and/or gastrocnemius myofa scial tear). Correlate clinically and consider MRI for more detailed assessment. [facility], , 07/22/2024 12:25 PM
[2024-07-22 12:30] LABS: C Reactive Protein 18.8 mg/dL (<1.0)
--- NOTE | 2024-07-22 12:30 | XR ---
EXAMINATION TYPE: XR chest 2V DATE OF EXAM: 07/22/2024 12:06 PM COMPARISON: CT chest 07/16/2024 CLINICAL INDICATION: Male, 78 years old with history of Follow up to abnormal CT on 07/16, , TECHNIQUE: AP and lateral views FINDINGS: Upper left heart margin obscured by adjacent pleural parenchymal opacity. Atherosclerotic arch calcif ications. Right lung and pleural space as well as the left base remain clear. No pleural effusion. IMPRESSION: Ongoing left upper lobar collapse. Recommend pulmonary medicine referral especially to exclude an end obronchial lesion/neoplasm. [facility], Workstation: [id number], 07/22/2024 12:28 PM
[2024-07-22] MEDS ORDERED: PNEUMONIA PROTOCOL UTILIZED 1 EACH MISC PO PRN (12:33)
[2024-07-22] MEDS: SODIUM CHLORIDE 0.9% 1,000 ML IV ONE (12:34)
[2024-07-22] MEDS: AZITHROMYCIN 500 MG in SODIUM CHLORIDE 0.9% 250 ML IVPB STA (14:15)
[2024-07-22 16:50] LABS: Glucose,Whole Blood 162 mg/dL (70-110)
--- NOTE | 2024-07-22 17:51 | P.HPIM ---
History of Present Illness H&P Date: 07/22/24 Lc Tijerina, is a 78-year-old male who presented to [facility] emergency room with a chief complaint of left knee pain patient stated that he had a fall about 1 month ago and injured his left knee and had a head laceration, he improved gradually however he is still having significant pain in the left knee and decided to come to emergency room. Additionally patient has been followed as outpatient for left upper lobe infiltrate, he received a course of oral antibiotic as outpatient, he had a CT scan of the chest on 07/16/2024 that revealed : Consolidation and collapse of the left upper lobe, patient was evaluated in the emergency room and decision was made to proceed with admission and consultation for pulmonary. He was started on IV antibiotic in the emergency room. He was evaluated in the emergency room vital examination on presentation revealed a temperature of 97.9 pulse 104 respiration 18 blood pressure 127/61 pulse ox 94% on room air Laboratory data reveals a white blood count of 10.6 hemoglobin 10.4 platelet count 324 sodium 136 potassium 4.8 chloride 102 CO2 23 BUN 39 creatinine 0.92 influenza A and B RSV and COVID-19 PCR were negative Testing in the emergency room revealed chest x-ray done in the emergency room revealed ongoing left upper lobe collapse Patient was admitted to medical floor for further evaluation and treatment Past Medical History Past Medical History: Diabetes Mellitus, GI Bleed, Hypertension, Pneumonia Additional Past Medical History / Comment(s): Pneumonia-1984, possitive occult in 07/08/15 History of Any Multi-Drug Resistant Organisms: None Reported Past Surgical History: Appendectomy Additional Past Surgical History / Comment(s): colonoscopy 07/15/15 with Caitlyn parada, cyst removed from right thumb, Orthoscopic surgery in left knee with Dr Pagan in the Past Anesthesia/Blood Transfusion Reactions: No Reported Reaction Additional Past Anesthesia/Blood Transfusion Reaction / Comment(s): Never had a blood transfusion Past Psychological History: Anxiety Past Alcohol Use History: None Reported Past Drug Use History: None Reported - Past Family History Mother Additional Family Medical History / Comment(s): Stroke Father Family Medical History: Cancer Additional Family Medical History / Comment(s): Jaw cancer Brother(s) Family Medical History: No Reported History Medications and Allergies Home Medications Medication Instructions Recorded Confirmed Type Aspirin 81 mg PO DAILY 06/23/22 07/22/24 History Empagliflozin [Jardiance] 25 mg PO DAILY 06/23/22 07/22/24 History Rosuvastatin [Crestor] 20 mg PO DAILY 06/23/22 07/22/24 History metFORMIN HCL [Glucophage] 850 mg PO BID-W/MEALS 06/23/22 07/22/24 History Brimonidine Tartrate [Alphagan P 1 drop BOTH EYES BID 07/22/24 07/22/24 History 0.2% Ophth Soln] Irbesartan [Avapro] 300 mg PO DAILY 07/22/24 07/22/24 History Latanoprostene Bunod [Vyzulta] 1 drop BOTH EYES HS 07/22/24 07/22/24 History amLODIPine [Norvasc] 5 mg PO DAILY 07/22/24 07/22/24 History glipiZIDE [Glucotrol] 5 mg PO BID-W/MEALS 07/22/24 07/22/24 History timoloL [timoloL 0.5% Ophth Soln] 1 drop BOTH EYES DAILY 07/22/24 07/22/24 History Allergies Allergy/AdvReac Type Severity Reaction Status Date / Time Sulfa (Sulfonamide AdvReac Rapid Verified 07/22/24 12:14 Antibiotics) Heart Rate Physical Exam Vitals: Vital Signs Temp Pulse Resp BP Pulse Ox 07/22/24 13:07 83 17 110/54 98 07/22/24 12:37 74 18 116/51 96 07/22/24 10:44 86 19 119/73 92 L 07/22/24 10:00 97.9 F 104 H 18 127/61 94 L Intake and Output 07/21/24 07/22/24 07/22/24 22:59 06:59 14:59 Other: Weight 63.503 kg In general patient is alert and oriented x 3 in no distress HEENT head normocephalic and atraumatic Neck is supple no JVD no goiter no lymphadenopathy no carotid bruit Chest examination reveals a crackles bilaterally with decreased respiratory sounds on the left Cardiac exam reveals regular heart sounds S1 and S2 no gallops no murmur Abdomen is soft nontender no organomegaly with normal bowel sounds Extremity exam reveals no edema no cyanosis or clubbing Neurological examination reveals no gross focal deficits Results CBC & Chem 7: 07/22/24 11:55 07/22/24 11:55 Labs: Abnormal Lab Results - Last 24 Hours (Table) 07/22/24 07/22/24 Range/Units 11:55 11:55 WBC 10.66 H (4.50-10.00) 10*3/uL RBC 3.66 L (4.40-5.60) 10*6/uL Hgb 10.4 L (13.0-17.0) g/dL Hct 32.4 L (39.6-50.0) % MPV 9.4 L (9.5-12.2) fL Neutrophils # 8.63 H (1.80-7.70) 10*3/uL Lymphocytes # 0.87 L (0.90-5.00) 10*3/uL Sodium 136 L (137-145) mmol/L BUN 39 H (9-20) mg/dL Glucose 150 H (74-99) mg/dL AST 12 L (17-59) U/L C-Reactive Protein 18.8 H (<1.0) mg/dL Assessment and Plan Plan: Pneumonia with left upper lobe collapse, possible postobstructive pneumonia, pulmonary consultation requested Recent fall with left knee pain Underlying history of hypertension Underlying history of diabetes mellitus Underlying history of hyperlipidemia Underlying history of gastroesophageal reflux disease Underlying history of tobacco abuse At this time patient was seen and examined Home medications reviewed and reordered Patient was counseled in length in regard to smoking cessation Pulmonary consultation was requested Patient was started on IV antibiotic in the emergency room Will follow closely
[2024-07-22] MEDS: glipiZIDE 5 MG TAB PO SCH (19:09)
[2024-07-22] MEDS: metFORMIN 850 MG TAB PO SCH (19:35)
[2024-07-22] MEDS: NON FORMULARY DRUG (Latanoprostene Bunod [Vyzulta] 5 ML Ml) BOTH EYES SCH (20:26)
[2024-07-22] MEDS: BRIMONIDINE TARTRATE 0.2% DROPS 5 ML BTL BOTH EYES SCH (20:44)
[2024-07-22] MEDS: TIMOLOL 0.5% OPHTH DROPS 5 ML BTL BOTH EYES SCH (20:44)
--- NOTE | 2024-07-23 01:33 | P.CNPUL ---
History of Present Illness Consult date: 07/23/24 Requesting physician: Sherron Dejesus Reason for consult: pneumonia Chief complaint: Left leg pain History of present illness: Patient is 78-year-old male with documented past medical history significant for hypertension, hyperlipidemia, diabetes mellitus, and heavy tobacco use. He is a questionable historian, may have some underlying dementia. His primary care provider is Dr. Dejesus. We are consulted for abnormal chest CT findings and concern for possible malignancy and/or postobstructive pneumonia. Presented to the emergency department yesterday with a chief complaint of left lower extrem ity pain and recent fall. Ultrasound of the lower extremity significant for 3.4 cm Sanchez's cyst, with additional elongated fluid collection measuring up to 12.3 cm along the medial calf. Possible concern for ruptured Sanchez's cyst, plantaris tear, and/or gastrocnemius myofascial tear. Venous Doppler was negative for DVT on the left. Unrelated, patient had an outpatient low-dose chest CT for lung cancer screening done May, showing a patchy consolidative opacity throughout the left upper lobe and lingula. Reportedly, no distinct pulmonary nodule was seen, however, could not be excluded. Patient states he was recently treated for pneumonia on outpatient basis. Follow-up chest CT done 07/16/2024 showing complete left upper lobe atelectasis/collapse, with possible obstructive endobronchial lesion. Postobstructive pneumonia was not excluded. Patient currently being evaluated on the general medical floor. Chest x-ray continues to show left upper lobe collapse. Patient denies any infectious symptoms. Denies any shortness of breath, cough, sputum production, hemoptysis, chest pain. Denies fevers or chills. He does have significant smoking history, reportedly 1 pack/week up until 3 weeks ago. No documented history of COPD. 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 Denies any recent weight loss. States that his father from lung cancer. CBC: WBC count 10.6, hemoglobin 10.4, platelets 324. CMP: Sodium 136, potassium 4.8, chloride 102, serum bicarb 23, BUN 39, creatinine 0.92, glucose 150. LFTs unremarkable. Procalcitonin level 0.26. He was started on antibiotics in the form of azithromycin and Rocephin in the ED. Patient currently resting comfortably on room air. Afebrile. Vitals are stable. Review of Systems Constitutional: Denies chills, Denies fever, Denies night sweats, Denies poor appetite, Denies weight gain, Denies weight loss Ears, nose, mouth and throat: Denies dysphagia, Denies headache, Denies nasal congestion, Denies nasal discharge, Denies post-nasal drip, Denies sinus pressure, Denies sore throat Cardiovascular: Denies chest pain, Denies leg edema, Denies lightheadedness, Denies orthopnea, Denies palpitations, Denies paroxysmal nocturnal dyspnea, Denies shortness of breath, Denies syncope Respiratory: Reports as per HPI Gastrointestinal: Denies abdominal pain, Denies change in bowel habits, Denies coffee ground emesis, Denies diarrhea, Denies hematochezia, Denies melena, Denies nausea, Denies vomiting Genitourinary: Denies dysuria, Denies hematuria Musculoskeletal: Denies limitation of motion Integumentary: Denies growths, Denies lesions, Denies rash, Denies unusual brui sing Neurological: Denies headaches, Denies seizures, Denies syncope Psychiatric: Denies anxiety, Denies depression Past Medical History Past Medical History: Diabetes Mellitus, GI Bleed, Hypertension, Pneumonia Additional Past Medical History / Comment(s): Pneumonia-1984, possitive occult in 07/08/15 History of Any Multi-Drug Resistant Organisms: None Reported Past Surgical History: Appendectomy Additional Past Surgical History / Comment(s): colonoscopy 07/15/15 with Caitlyn Ellsworth, cyst removed from right thumb, Orthoscopic surgery in left knee with Dr Pagan in the Past Anesthesia/Blood Transfusion Reactions: No Reported Reaction Additional Past Anesthesia/Blood Transfusion Reaction / Comment(s): Never had a blood transfusion Past Psychological History: Anxiety Past Alcohol Use History: None Reported Past Drug Use History: None Reported - Past Family History Mother Additional Family Medical History / Comment(s): Stroke Father Family Medical History: Cancer Additional Family Medical History / Comment(s): Jaw cancer Brother(s) Family Medical History: No Reported History Medications and Allergies Home Medications Medication Instructions Recorded Confirmed Type Aspirin 81 mg PO DAILY 06/23/22 07/22/24 History Empagliflozin [Jardiance] 25 mg PO DAILY 06/23/22 07/22/24 History Rosuvastatin [Crestor] 20 mg PO DAILY 06/23/22 07/22/24 History metFORMIN HCL [Glucophage] 850 mg PO BID-W/MEALS 06/23/22 07/22/24 History Brimonidine Tartrate [Alphagan P 1 drop BOTH EYES BID 07/22/24 07/22/24 History 0.2% Ophth Soln] Irbesartan [Avapro] 300 mg PO DAILY 07/22/24 07/22/24 History Latanoprostene Bunod [Vyzulta] 1 drop BOTH EYES HS 07/22/24 07/22/24 History amLODIPine [Norvasc] 5 mg PO DAILY 07/22/24 07/22/24 History glipiZIDE [Glucotrol] 5 mg PO BID-W/MEALS 07/22/24 07/22/24 History timoloL [timoloL 0.5% Ophth Soln] 1 drop BOTH EYES DAILY 07/22/24 07/22/24 History Allergies Allergy/AdvReac Type Severity Reaction Status Date / Time Sulfa (Sulfonamide AdvReac Rapid Verified 07/22/24 12:14 Antibiotics) Heart Rate Physical Exam Vitals: Vital Signs Temp Pulse Pulse Resp BP BP Pulse Ox 07/22/24 19:25 99.5 F 86 17 151/56 95 07/22/24 15:47 98.3 F 85 19 120/57 97 07/22/24 15:43 79 15 126/50 96 07/22/24 13:07 83 17 110/54 98 07/22/24 12:37 74 18 116/51 96 07/22/24 10:44 86 19 119/73 92 L 07/22/24 10:00 97.9 F 104 H 18 127/61 94 L Intake and Output 07/22/24 07/22/24 07/23/24 14:59 22:59 06:59 Other: Voiding Method Toilet # Voids 2 Weight 63.503 kg 63.503 kg GENERAL EXAM: Alert, 78-year-old male, comfortable in no apparent distress. HEAD: Normocephalic and atraumatic EYES: Normal reaction of pupils, equal size. NOSE: Clear with pink turbinates. THROAT: No erythema or exudates. NECK: No masses, no JVD. CHEST: No chest wall deformity. LUNGS: Equal air entry with left upper inspiratory wheezing heard anteriorly. On room air. No conversational dyspnea or accessory muscle use.. CVS: S1 and S2 normal with no audible murmur, regular rhythm. No extra heart sounds ABDOMEN: No hepatosplenomegaly, active bowel sounds, no guarding or rigidity. SPINE: No scoliosis or deformity SKIN: No rashes CENTRAL NERVOUS SYSTEM: No focal deficits, tone is normal in all 4 extremities. EXTREMITIES: There is no peripheral edema, clubbing, or cyanosis. Peripheral pulses are intact. Left posterior knee edema and tenderness on exam. Results - Laboratory Findings CBC and BMP: 07/22/24 11:55 07/22/24 11:55 PT/INR, D-dimer PT 10.4 sec (10.0-12.5) 07/22/24 11:55 INR 0.9 (<1.2) 07/22/24 11:55 Abnormal lab findings: Abnormal Labs 07/22/24 07/22/24 07/22/24 11:55 11:55 16:46 WBC 10.66 H RBC 3.66 L Hgb 10.4 L Hct 32.4 L MPV 9.4 L Neutrophils # 8.63 H Lymphocytes # 0.87 L Sodium 136 L BUN 39 H Glucose 150 H POC Glucose (mg/dL) 162 H AST 12 L C-Reactive Protein 18.8 H - Diagnostic Findings Chest x-ray: image reviewed CT scan - chest: image reviewed Assessment and Plan Assessment: Left upper lobe atelectasis/collapse. CT chest from 07/16/2024 reviewed, showing complete left upper lobe atelectasis/collapse with cutoff sign and possible endobronchial lesion. Postobstructive pneumonia was not completely excluded but felt to be less likely. No leukocytosis. Afebrile. Procalcitonin level 0.26. Recent outpatient treatment for pneumonia History of heavy tobacco use Familial history of lung cancer Hypertension History of hyperlipidemia History of diabetes mellitus Sanchez's cyst with possible rupture Plan: Patient's medications, labs, imaging reviewed Chest CT findings concerning for possible malignancy, this will be reviewed with Dr. Templeton later this morning. Patient will likely need bronchoscopy with airway examination and possible endobronchial biopsy Recommend outpatient PET scan Doubt superimposed infectious process, and antibiotics could likely be discontinued Additional recommendations are to follow I have personally seen and examined the patient, performed the documentation and the assessment and plan as written. Number of minutes spent on the visit:20 This dictation was produced using [employer] dictation software please excuse grammatical errors Time with Patient: Greater than 30
--- NOTE | 2024-07-23 08:55 | P.PN ---
Subjective Progress Note Date: 07/23/24 Lc Tijerina, is a 78-year-old male who presented to [facility] emergency room with a chief complaint of left knee pain patient stated that he had a fall about 1 month ago and injured his left knee and had a head laceration, he improved gradually however he is still having significant pain in the left knee and decided to come to emergency room. Additionally patient has been followed as outpatient for left upper lobe infiltrate, he received a course of oral antibiotic as outpatient, he had a CT scan of the chest on 07/16/2024 that revealed : Consolidation and collapse of the left upper lobe, patient was evaluated in the emergency room and decision was made to proceed with admission and consultation for pulmonary. He was started on IV antibiotic in the emergency room. He was evaluated in the emergency room vital examination on presentation revealed a temperature of 97.9 pulse 104 respiration 18 blood pressure 127/61 pulse ox 94% on room air Laboratory data reveals a white blood count of 10.6 hemoglobin 10.4 platelet count 324 sodium 136 potassium 4.8 chloride 102 CO2 23 BUN 39 creatinine 0.92 influenza A and B RSV and COVID-19 PCR were negative Testing in the emergency room revealed chest x-ray done in the emergency room revealed ongoing left upper lobe collapse Patient was admitted to medical floor for further evaluation and treatment On 07/23/2024 patient is alert and oriented x 3. Per pulmonary services concerns about possible malignancy. Patient will likely need bronchoscopy with airway examination and biopsy per pulmonary. Patient denies chest pain or shortness of breath. Patient denies nausea vomiting or diarrhea. Patient denies any urinary burning or frequency. Current vital signs temp 98.5, heart rate 75, respiratory rate 17, blood pressure 137/57 with a pulse ox of 95% on room air Objective - Vital Signs Vital signs: Vital Signs Temp 98.5 F 07/23/24 01:57 Pulse 75 07/23/24 01:57 Resp 17 07/23/24 01:57 BP 137/57 07/23/24 01:57 Pulse Ox 94 L 07/23/24 01:57 FiO2 Intake & Output 07/22/24 07/23/24 07/23/24 18:59 06:59 18:59 Weight 63.503 kg Other: Voiding Method Toilet # Voids 2 5 - Exam In general patient is alert and oriented x 3 in no distress HEENT head normocephalic and atraumatic Neck is supple no JVD no goiter no lymphadenopathy no carotid bruit Chest examination reveals a crackles bilaterally with decreased respiratory sounds on the left Cardiac exam reveals regular heart sounds S1 and S2 no gallops no murmur Abdomen is soft nontender no organomegaly with normal bowel sounds Extremity exam reveals no edema no cyanosis or clubbing Neurological examination reveals no gross focal deficits - Labs CBC & Chem 7: 07/22/24 11:55 07/22/24 11:55 Labs: Abnormal Lab Results - Last 24 Hours (Table) 07/22/24 07/22/24 07/22/24 Range/Units 11:55 11:55 16:46 WBC 10.66 H (4.50-10.00) 10*3/uL RBC 3.66 L (4.40-5.60) 10*6/uL Hgb 10.4 L (13.0-17.0) g/dL Hct 32.4 L (39.6-50.0) % MPV 9.4 L (9.5-12.2) fL Neutrophils # 8.63 H (1.80-7.70) 10*3/uL Lymphocytes # 0.87 L (0.90-5.00) 10*3/uL Sodium 136 L (137-145) mmol/L BUN 39 H (9-20) mg/dL Glucose 150 H (74-99) mg/dL POC Glucose (mg/dL) 162 H (70-110) mg/dL AST 12 L (17-59) U/L C-Reactive Protein 18.8 H (<1.0) mg/dL Assessment and Plan Plan: Pneumonia with left upper lobe collapse, possible postobstructive pneumonia, pulmonary consultation requested Recent fall with left knee pain Underlying history of hypertension Underlying history of diabetes mellitus Underlying history of hyperlipidemia Underlying history of gastroesophageal reflux disease Underlying history of tobacco abuse At this time patient was seen and examined Home medications reviewed and reordered Patient was counseled in length in regard to smoking cessation Pulmonary consultation was requested Patient was started on IV antibiotic in the emergency room Will follow closely
[2024-07-23] MEDS: DAPAGLIFLOZIN PROPANEDIOL 10 MG TABLET PO SCH (09:09)
[2024-07-23] MEDS: LOSARTAN 50 MG TAB PO SCH (09:09)
[2024-07-23] MEDS: CEFTRIAXONE IVPB SCH (09:10)
[2024-07-23] MEDS: amLODIPine 5 MG TAB PO SCH (09:10)
[2024-07-23] MEDS: PANTOPRAZOLE 40 MG/10 ML VIAL IV SCH (09:10)
[2024-07-23] MEDS: WATER IVPB SCH (09:10)
[2024-07-23] MEDS: DEXTROSE 5% IVPB SCH (09:10)
[2024-07-23] MEDS: ATORVASTATIN 10 MG TAB PO SCH (09:10)
[2024-07-23] MEDS: ASPIRIN 81 MG PO SCH (09:10)
[2024-07-23] MEDS: AZITHROMYCIN 500 MG TAB PO SCH (12:50)
[2024-07-23] MEDS: LACTATED RINGERS 1,000 ML IV SCH (17:41)
[2024-07-23 20:23] LABS: Glucose,Whole Blood 102 mg/dL (70-110)
[2024-07-24 06:06] LABS: Glucose,Whole Blood 119 mg/dL (70-110)
[2024-07-24 08:27] LABS: ALT 10 U/L (10-49); AST 8 U/L (14-35); Albumin 3.4 g/dL (3.8-4.9); Albumin/Globulin Ratio 1.17 Ratio (1.60-3.17); Alkaline Phosphatase 65 U/L (41-126); BUN/Creat Ratio 17.67 Ratio (12.00-20.00); Blood Urea Nitrogen 15.9 mg/dL (9.0-27.0); Calcium 8.8 mg/dL (8.7-10.3); Carbon Dioxide 22.5 mmol/L (21.6-31.8); Chloride 106 mmol/L (96-109); Globulin 2.9 g/dL (1.6-3.3); Glucose 107 mg/dL (70-110); Potassium 4.6 mmol/L (3.5-5.5); Sodium 139 mmol/L (135-145); Total Bilirubin <0.2 mg/dL (0.3-1.2); Total Protein 6.3 g/dL (6.2-8.2)
[2024-07-24 08:32] LABS: Basophils # (A) 0.04 X 10*3/uL (0.00-0.10); Basophils % (A) 0.5 %; Eosinophils # (A) 0.29 X 10*3/uL (0.04-0.35); Eosinophils % (A) 3.4 %; HCT 32.7 % (39.6-50.0); Lymphocytes # (A) 1.21 X 10*3/uL (0.90-5.00); Lymphocytes % (A) 14.1 %; MCH 27.4 pg (27.0-32.0); MCHC 30.6 g/dL (32.0-37.0); MCV 89.6 FL (80.0-97.0); Mean Platelet Volume 9.9 FL (9.5-12.2); Monocytes # (A) 0.99 X 10*3/uL (0.20-1.00); Monocytes % (A) 11.5 %; NRBC Per 100 WBC 0 X 10*3/uL (0.00-0.01); Neutrophils # (A) 6.02 X 10*3/uL (1.80-7.70); Neutrophils % (A) 70.2 %; Platelet Count 387 X 10*3/uL (140-440); RBC 3.65 X 10*6/uL (4.40-5.60); RDW 16.7 % (11.5-14.5); WBC 8.58 X 10*3/uL (4.50-10.00)
[2024-07-24 11:48] LABS: Glucose,Whole Blood 117 mg/dL (70-110)
--- NOTE | 2024-07-24 12:43 | P.PN ---
Subjective Progress Note Date: 07/24/24 Principal diagnosis: Possible of lung cancer. Patient is 78-year-old male with documented past medical history significant for hypertension, hyperlipidemia, diabetes mellitus, and heavy tobacco use. He is a questionable historian, may have some underlying dementia. His primary care provider is Dr. Dejesus. We are consulted for abnormal chest CT findings and concern for possible malignancy and/or postobstructive pneumonia. Presented to the emergency department yesterday with a chief complaint of left lower extremity pain and recent fall. Ultrasound of the lower extremity significant for 3.4 cm Sanchez's cyst, with additional elongated fluid collection measuring up to 12.3 cm along the medial calf. Possible concern for ruptured Sanchez's cyst, plantaris tear, and/or gastrocnemius myofascial tear. Venous Doppler was negative for DVT on the left. Unrelated, patient had an outpatient low-dose chest CT for lung cancer screening done May, showing a patchy consolida tive opacity throughout the left upper lobe and lingula. Reportedly, no distinct pulmonary nodule was seen, however, could not be excluded. Patient states he was recently treated for pneumonia on outpatient basis. Follow-up chest CT done 07/16/2024 showing complete left upper lobe atelectasis/collapse, with possible obstructive endobronchial lesion. Postobstructive pneumonia was not excluded. Patient currently being evaluated on the general medical floor. Chest x-ray continues to show left upper lobe collapse. Patient denies any infectious symptoms. Denies any shortness of breath, cough, sputum production, hemoptysis, chest pain. Denies fevers or chills. He does have significant smok ing history, reportedly 1 pack/week up until 3 weeks ago. No documented history of COPD. 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 Denies any recent weight loss. States that his father from lung cancer. CBC: WBC count 10.6, hemoglobin 10.4, platelets 324. CMP: Sodium 136, potassium 4.8, chloride 102, serum bicarb 23, BUN 39, creatinine 0.92, glucose 150. LFTs unremarkable. Procalcitonin level 0.26. He was started on antibiotics in the form of azithromycin and Rocephin in the ED. Patient currently resting comfortably on room air. Afebrile. Vitals are stable. Progress note dated July 24, 2024. 78-year-old male admitted with a diagnosis of possible postobstructive pneumonia, left upper lobe. The patient is a heavy smoker. The patient is unde rgoing bronchoscopy today. Concerned about an endobronchial lesion, causing postobstructive pneumonia. The patient does have a history of dementia. Clinically, he is stable. He is on room air. He is getting saline at 25 cc an hour. Current laboratory data includes a white count of 8.6, hemoglobin 10, hematocrit 32.7, and a platelet count of 387,000. Sodium 139, potassium 4.6, chlorides 106, CO2 23, BUN 16, creatinine 0.9. Glucose is 117. The patient continues on Rocephin. Objective - Vital Signs Vital signs: Vital Signs Temp 98.3 F 07/24/24 07:00 Pulse 79 07/24/24 07:00 Resp 17 07/24/24 07:00 BP 147/50 07/24/24 07:00 Pulse Ox 93 L 07/24/24 07:00 FiO2 Intake & Output 07/23/24 07/24/24 07/24/24 18:59 06:59 18:59 Intake Total 500 Balance 500 Intake: Oral 500 Other: # Voids 5 3 - Exam No acute distress, oriented 3. Currently on room air. No respiratory distress. HEENT examination is grossly unremarkable. Mucous membranes are moist. No oral lesions. Neck supple. Full range of motion. No adenopathy thyromegaly or neck vein distention. Cardiovascular examination reveals regular rhythm rate. S1-S2 normal. No S3 or S4. No discernible murmur noted. Lungs reveal scattered rhonchi and wheezes. Breath sounds are equal. No crackles. Saturations are excellent on room air. Abdomen soft bowel sounds are heard. No masses or tenderness. Extremities are intact. No cyanosis clubbing or edema. Skin is without rash or lesion. Neurologic examination is brief but nonfocal. - Labs CBC & Chem 7: 07/24/24 03:13 07/24/24 03:13 Labs: Abnormal Lab Results - Last 24 Hours (Table) 07/24/24 07/24/24 07/24/24 Range/Units 03:13 03:13 06:05 RBC 3.65 L (4.40-5.60) X 10*6/uL Hgb 10.0 L (13.0-17.0) g/dL Hct 32.7 L (39.6-50.0) % MCHC 30.6 L (32.0-37.0) g/dL RDW 16.7 H (11.5-14.5) % POC Glucose (mg/dL) 119 H (70-110) mg/dL Total Bilirubin <0.2 L (0.3-1.2) mg/dL AST 8 L (14-35) U/L Albumin 3.4 L (3.8-4.9) g/dL Albumin/Globulin Ratio 1.17 L (1.60-3.17) Ratio 07/24/24 Range/Units 11:47 RBC (4.40-5.60) X 10*6/uL Hgb (13.0-17.0) g/dL Hct (39.6-50.0) % MCHC (32.0-37.0) g/dL RDW (11.5-14.5) % POC Glucose (mg/dL) 117 H (70-110) mg/dL Total Bilirubin (0.3-1.2) mg/dL AST (14-35) U/L Albumin (3.8-4.9) g/dL Albumin/Globulin Ratio (1.60-3.17) Ratio Microbiology - Last 24 Hours (Table) 07/22/24 12:03 Blood Culture - Preliminary Blood Assessment and Plan Assessment: Left upper lobe atelectasis/collapse. CT chest from 07/16/2024 reviewed, showing complete left upper lobe atelectasis/collapse with cutoff sign and possible endobronchial lesion. Postobstructive pneumonia was not completely excluded but felt to be less likely. Recent outpatient treatment for pneumonia. History of heavy tobacco use. Familial history of lung cancer. Hypertension. History of hyperlipidemia. History of diabetes mellitus. Sanchez's cyst with possible rupture. Plan: Plan dated July 24, 2024. The patient is to undergo a bronchoscopy today. We want to rule out an endobronchial lesion, causing a postobstructive pneumonia, in the left upper lobe. The patient has a history of heavy tobacco use. There is a family history of lung cancer. Labs, x-rays, medications are reviewed. X-rays, reviewed. CAT scan is reviewed. We will continue to follow make re commendations. Prognosis is guarded. He continues on Rocephin. Dictation was produced using [employer] dictation software. Please excuse any grammatical, word or spelling errors. Time with Patient: Less than 30
[2024-07-24] MEDS ORDERED: PROPOFOL 10 MG/ML 20 ML VIAL IV ONE (14:03)
[2024-07-24] MEDS ORDERED: LIDOCAINE 1% INJ 10MG/ML (20 ML MDV) ONE (14:03)
[2024-07-24] MEDS: IV FLUID CONTINUATION 700 ML IV ONE (14:07)
--- NOTE | 2024-07-24 16:51 | P.PN ---
Subjective Progress Note Date: 07/24/24 Lc Tijerina, is a 78-year-old male who presented to [facility] emergency room with a chief complaint of left knee pain patient stated that he had a fall about 1 month ago and injured his left knee and had a head laceration, he improved gradually however he is still having significant pain in the left knee and decided to come to emergency room. Additionally patient has been followed as outpatient for left upper lobe infiltrate, he received a course of oral antibiotic as outpatient, he had a CT scan of the chest on 07/16/2024 that revealed : Consolidation and collapse of the left upper lobe, patient was evaluated in the emergency room and decision was made to proceed with admission and consultation for pulmonary. He was started on IV antibiotic in the emergency room. He was evaluated in the emergency room vital examination on presentation revealed a temperature of 97.9 pulse 104 respiration 18 blood pressure 127/61 pulse ox 94% on room air Laboratory data reveals a white blood count of 10.6 hemoglobin 10.4 platelet count 324 sodium 136 potassium 4.8 chloride 102 CO2 23 BUN 39 creatinine 0.92 influenza A and B RSV and COVID-19 PCR were negative Testing in the emergency room revealed chest x-ray done in the emergency room revealed ongoing left upper lobe collapse Patient was admitted to medical floor for further evaluation and treatment On 07/23/2024 patient is alert and oriented x 3. Per pulmonary services concerns about possible malignancy. Patient will likely need bronchoscopy with airway examination and biopsy per pulmonary. Patient denies chest pain or shortness of breath. Patient denies nausea vomiting or diarrhea. Patient denies any urinary burning or frequency. Current vital signs temp 98.5, heart rate 75, respiratory rate 17, blood pressure 137/57 with a pulse ox of 95% on room air On 07/24/2024 patient was seen and examined on the medical floor he is alert and oriented x 3 in no apparent distress there is no fever or chills no headache or dizziness patient is complaining of occasional cough and shortness of breath with activity otherwise he denies any complaints, no chest pain, no nausea or vomiting no abdominal pain no diarrhea and no urinary symptoms, at this time we are awaiting plans for bronchoscopy. Objective - Vital Signs Vital signs: Vital Signs Temp 98.5 F 07/24/24 00:45 Pulse 67 07/24/24 00:45 Resp 16 07/24/24 00:45 BP 112/57 07/24/24 00:45 Pulse Ox 94 L 07/24/24 00:45 FiO2 Intake & Output 07/23/24 07/24/24 07/24/24 18:59 06:59 18:59 Intake Total 500 Balance 500 Intake: Oral 500 Other: # Voids 5 3 - Exam In general patient is alert and oriented x 3 in no distress HEENT head normocephalic and atraumatic Neck is supple no JVD no goiter no lymphadenopathy no carotid bruit Chest examination reveals a crackles bilaterally with decreased respiratory sounds on the left Cardiac exam reveals regular heart sounds S1 and S2 no gallops no murmur Abdomen is soft nontender no organomegaly with normal bowel sounds Extremity exam reveals no edema no cyanosis or clubbing Neurological examination reveals no gross focal deficits - Labs CBC & Chem 7: 07/24/24 03:13 07/24/24 03:13 Labs: Abnormal Lab Results - Last 24 Hours (Table) 07/24/24 Range/Units 06:05 POC Glucose (mg/dL) 119 H (70-110) mg/dL Microbiology - Last 24 Hours (Table) 07/22/24 12:03 Blood Culture - Preliminary Blood Assessment and Plan Plan: Pneumonia with left upper lobe collapse, possible postobstructive pneumonia, pulmonary consultation requested Recent fall with left knee pain Underlying history of hypertension Underlying history of diabetes mellitus Underlying history of hyperlipidemia Underlying history of gastroesophageal reflux disease Underlying history of tobacco abuse At this time patient was seen and examined Home medications reviewed and reordered Patient was counseled in length in regard to smoking cessation Pulmonary consultation was requested Patient was started on IV antibiotic in the emergency room Will follow closely
[2024-07-24 16:55] LABS: Glucose,Whole Blood 223 mg/dL (70-110)
[2024-07-24 20:02] LABS: Glucose,Whole Blood 197 mg/dL (70-110)
--- NOTE | 2024-07-24 21:22 | OP ---
OPERATIVE REPORT DATE OF SERVICE : PROCEDURE PERFORMED: Airway examination, therapeutic lavage, BAL, brushes of left upper lobe, washes of left upper lobe, and endobronchial and transbronchial biopsies of left upper lobe. PREOPERATIVE DIAGNOSIS: Rule out lung cancer. POSTOPERATIVE DIAGNOSIS: Rule out lung cancer. FIRST INSOLE RASPER: Dr. Angelina Claudio. ANESTHESIA PROVIDED: Monitored anesthesia care. DESCRIPTION OF PROCEDURE: The patient's procedure took place and was in room #1. There was informed consent and universal timeout. After the patient was adequately sedated and being fully monitored, the bronchoscope was inserted through the right nostril. It was passed through the right nasopharynx into the oropharynx. The hypopharynx was identified and topicalized. The hypopharyngeal structures including anterior commissure, true cords, false cords, arytenoids, piriform sinuses, right and left, vallecula, epiglottis, all appeared normal. The glottic opening was topicalized. The bronchoscope was pushed through the glottic opening into the trachea. Trachea appeared normal. Tracheal syd was sharp. The right mainstem was topicalized. The right upper lobe and its 3 segments, right middle lobe and its 2 segments, and right lower lobe and its 5 segments were all normal. On the left side after topicalization, the left lower lobe and its 4 segments were normal. In the left upper lobe, there was a large obstructing tumor. We could not pass into the lingula or the left upper lobe proper. We did brushes. Initially, we did brushes of the tumor in the left upper lobe. We did endobronchial and transbronchial biopsies of the left upper lobe tumor. Finally, we washed the tumor. The samples will be sent to the laboratory for analysis. There was no immediate complication. The patient tolerated the procedure well. There was minimal bleeding. The patient will be recovered. Specimen sent to the laboratory for analysis. MMODL / IJN: [id number] /
[2024-07-25 06:14] LABS: Glucose,Whole Blood 134 mg/dL (70-110)
--- NOTE | 2024-07-25 09:19 | P.PN ---
Subjective Progress Note Date: 07/25/24 Lc Tijerina, is a 78-year-old male who presented to [facility] emergency room with a chief complaint of left knee pain patient stated that he had a fall about 1 month ago and injured his left knee and had a head laceration, he improved gradually however he is still having significant pain in the left knee and decided to come to emergency room. Additionally patient has been followed as outpatient for left upper lobe infiltrate, he received a course of oral antibiotic as outpatient, he had a CT scan of the chest on 07/16/2024 that revealed : Consolidation and collapse of the left upper lobe, patient was evaluated in the emergency room and decision was made to proceed with admission and consultation for pulmonary. He was started on IV antibiotic in the emergency room. He was evaluated in the emergency room vital examination on presentation revealed a temperature of 97.9 pulse 104 respiration 18 blood pressure 127/61 pulse ox 94% on room air Laboratory data reveals a white blood count of 10.6 hemoglobin 10.4 platelet count 324 sodium 136 potassium 4.8 chloride 102 CO2 23 BUN 39 creatinine 0.92 influenza A and B RSV and COVID-19 PCR were negative Testing in the emergency room revealed chest x-ray done in the emergency room revealed ongoing left upper lobe collapse Patient was admitted to medical floor for further evaluation and treatment On 07/23/2024 patient is alert and oriented x 3. Per pulmonary services concerns about possible malignancy. Patient will likely need bronchoscopy with airway examination and biopsy per pulmonary. Patient denies chest pain or shortness of breath. Patient denies nausea vomiting or diarrhea. Patient denies any urinary burning or frequency. Current vital signs temp 98.5, heart rate 75, respiratory rate 17, blood pressure 137/57 with a pulse ox of 95% on room air On 07/24/2024 patient was seen and examined on the medical floor he is alert and oriented x 3 in no apparent distress there is no fever or chills no headache or dizziness patient is complaining of occasional cough and shortness of breath with activity otherwise he denies any complaints, no chest pain, no nausea or vomiting no abdominal pain no diarrhea and no urinary symptoms, at this time we are awaiting plans for bronchoscopy. On 07/25/2024 patient is alert and oriented x 3. Status post bronchoscopy yesterday. Awaiting further recommendations from pulmonary standpoint. Patient remains on IV Rocephin. Current vital signs temp 98.0, heart 76, respiratory rate 17, blood pressure 159/69 with pulse ox of 96% on 2 L. Patient denies chest pain or shortness of breath. Patient denies nausea vomiting or diarrhea. Patient denies any urinary burning or frequency Objective - Vital Signs Vital signs: Vital Signs Temp 98.0 F 07/25/24 07:05 Pulse 76 07/25/24 07:05 Resp 17 07/25/24 07:05 BP 159/69 07/25/24 07:05 Pulse Ox 96 07/25/24 07:05 FiO2 Intake & Output 07/24/24 07/25/24 07/25/24 18:59 06:59 18:59 Intake Total 500 750 250 Balance 500 750 250 Intake: IV 200 Oral 300 750 250 Other: # Voids 4 4 - Exam In general patient is alert and oriented x 3 in no distress HEENT head normocephalic and atraumatic Neck is supple no JVD no goiter no lymphadenopathy no carotid bruit Chest examination reveals a crackles bilaterally with decreased respiratory sounds on the left Cardiac exam reveals regular heart sounds S1 and S2 no gallops no murmur Abdomen is soft nontender no organomegaly with normal bowel sounds Extremity exam reveals no edema no cyanosis or clubbing Neurological examination reveals no gross focal deficits - Labs CBC & Chem 7: 07/24/24 03:13 07/24/24 03:13 Labs: Abnormal Lab Results - Last 24 Hours (Table) 07/24/24 07/24/24 07/24/24 Range/Units 11:47 16:54 20:01 POC Glucose (mg/dL) 117 H 223 H 197 H (70-110) mg/dL 07/25/24 Range/Units 06:13 POC Glucose (mg/dL) 134 H (70-110) mg/dL Microbiology - Last 24 Hours (Table) 07/22/24 12:03 Blood Culture - Preliminary Blood Assessment and Plan Plan: Pneumonia with left upper lobe collapse, possible postobstructive pneumonia, pulmonary consultation requested Recent fall with left knee pain. Ultrasound completed showing Sanchez's cyst Underlying history of hypertension Underlying history of diabetes mellitus Underlying history of hyperlipidemia Underlying history of gastroesophageal reflux disease Underlying history of tobacco abuse At this time patient was seen and examined Home medications reviewed and reordered Patient was counseled in length in regard to smoking cessation Pulmonary consultation was requested Patient was started on IV antibiotic in the emergency room Status post bronchoscopy Will follow closely
--- NOTE | 2024-07-25 12:19 | XR ---
EXAMINATION TYPE: XR knee complete LT DATE OF EXAM: 07/25/2024 CLINICAL INDICATION: Male, 78 years old with history of left knee pain, pain TECHNIQUE: Frontal, lateral, and oblique views of the knee were obtained. COMPARISON: None. FINDINGS: There is no acute fracture/dislocation evident in left knee. Meniscal calcifications are p resent. Moderate to severe narrowing medial tibiofemoral compartment. Moderate narrowing with mild sp urring patellofemoral compartment. Enthesopathy from the anterior aspect of the patella are noted. Mo derate posterior arteriovascular calcification is seen IMPRESSION: As above. No acute findings are present. [facility], , 07/25/2024 12:16 PM
[2024-07-25 12:24] LABS: Glucose,Whole Blood 132 mg/dL (70-110)
--- NOTE | 2024-07-25 13:40 | P.PN ---
Subjective Progress Note Date: 07/25/24 Principal diagnosis: Possible of lung cancer. Patient is 78-year-old male with documented past medical history significant for hypertension, hyperlipidemia, diabetes mellitus, and heavy tobacco use. He is a questionable historian, may have some underlying dementia. His primary care provider is Dr. Dejesus. We are consulted for abnormal chest CT findings and concern for possible malignancy and/or postobstructive pneumonia. Presented to the emergency department yesterday with a chief complaint of left lower extremity pain and recent fall. Ultrasound of the lower extremity significant for 3.4 cm Sanchez's cyst, with additional elongated fluid collection measuring up to 12.3 cm along the medial calf. Possible concern for ruptured Sanchez's cyst, plantaris tear, and/or gastrocnemius myofascial tear. Venous Doppler was negative for DVT on the left. Unrelated, patient had an outpatient low-dose chest CT for lung cancer screening done May, showing a patchy consolida tive opacity throughout the left upper lobe and lingula. Reportedly, no distinct pulmonary nodule was seen, however, could not be excluded. Patient states he was recently treated for pneumonia on outpatient basis. Follow-up chest CT done 07/16/2024 showing complete left upper lobe atelectasis/collapse, with possible obstructive endobronchial lesion. Postobstructive pneumonia was not excluded. Patient currently being evaluated on the general medical floor. Chest x-ray continues to show left upper lobe collapse. Patient denies any infectious symptoms. Denies any shortness of breath, cough, sputum production, hemoptysis, chest pain. Denies fevers or chills. He does have significant smok ing history, reportedly 1 pack/week up until 3 weeks ago. No documented history of COPD. 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 Denies any recent weight loss. States that his father from lung cancer. CBC: WBC count 10.6, hemoglobin 10.4, platelets 324. CMP: Sodium 136, potassium 4.8, chloride 102, serum bicarb 23, BUN 39, creatinine 0.92, glucose 150. LFTs unremarkable. Procalcitonin level 0.26. He was started on antibiotics in the form of azithromycin and Rocephin in the ED. Patient currently resting comfortably on room air. Afebrile. Vitals are stable. Progress note dated July 24, 2024. 78-year-old male admitted with a diagnosis of possible postobstructive pneumonia, left upper lobe. The patient is a heavy smoker. The patient is unde rgoing bronchoscopy today. Concerned about an endobronchial lesion, causing postobstructive pneumonia. The patient does have a history of dementia. Clinically, he is stable. He is on room air. He is getting saline at 25 cc an hour. Current laboratory data includes a white count of 8.6, hemoglobin 10, hematocrit 32.7, and a platelet count of 387,000. Sodium 139, potassium 4.6, chlorides 106, CO2 23, BUN 16, creatinine 0.9. Glucose is 117. The patient continues on Rocephin. Progress note dated July 25, 2024. 78-year-old male who underwent bronchoscopy yesterday. The patient was found to have a large tumor obstructing the left upper lobe bronchus. Biopsies were done, along with washings and brushings. 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 Currently, the patient is seen in room 474. He is on 2 L. Is not receiving any IV fluids. The bronchoscopy was performed on July 24. No new labs today. The patient was admitted with a diagnosis of postobstructive pneumonia. Objective - Vital Signs Vital signs: Vital Signs Temp 98.0 F 07/25/24 07:05 Pulse 76 07/25/24 07:05 Resp 17 07/25/24 07:05 BP 159/69 07/25/24 07:05 Pulse Ox 96 07/25/24 07:05 FiO2 Intake & Output 07/24/24 07/25/24 07/25/24 18:59 06:59 18:59 Intake Total 500 750 250 Balance 500 750 250 Intake: IV 200 Oral 300 750 250 Other: # Voids 4 4 - Exam No acute distress, oriented 3. Currently on 2 L. No respiratory distress. HEENT examination is grossly unremarkable. Mucous membranes are moist. No oral lesions. Neck supple. Full range of motion. No adenopathy thyromegaly or neck vein distention. Cardiovascular examination reveals regular rhythm rate. S1-S2 normal. No S3 or S4. No discernible murmur noted. Lungs reveal scattered rhonchi and wheezes. Breath sounds are equal. No crackles. Saturations are excellent on room air. Abdomen soft bowel sounds are heard. No masses or tenderness. Extremities are intact. No cyanosis clubbing or edema. Skin is without rash or lesion. Neurologic examination is brief but nonfocal. - Labs CBC & Chem 7: 07/24/24 03:13 07/24/24 03:13 Labs: Abnormal Lab Results - Last 24 Hours (Table) 07/24/24 07/24/24 07/25/24 Range/Units 16:54 20:01 06:13 POC Glucose (mg/dL) 223 H 197 H 134 H (70-110) mg/dL 07/25/24 Range/Units 12:23 POC Glucose (mg/dL) 132 H (70-110) mg/dL Microbiology - Last 24 Hours (Table) 07/22/24 12:03 Blood Culture - Preliminary Blood Assessment and Plan Assessment: Left upper lobe atelectasis/collapse, with postobstructive pneumonia, secondary to a mass obstructing the left upper lobe. Recent outpatient treatment for pneumonia. History of heavy tobacco use. Familial history of lung cancer. Hypertension. History of hyperlipidemia. History of diabetes mellitus. History of severe dementia. Sanchez's cyst with possible rupture. Plan: Plan dated July 24, 2024. The patient is to undergo a bronchoscopy today. We want to rule out an endobronchial lesion, causing a postobstructive pneumonia, in the left upper lobe. The patient has a history of heavy tobacco use. There is a family history of lung cancer. Labs, x-rays, medications are reviewed. X-rays, reviewed. CAT scan is reviewed. We will continue to follow make recommendations. Prognosis is guarded. He continues on Rocephin. Dictation was produced using Segment dictation software. Please excuse any grammatical, word or spelling errors. Plan dated July 25, 2024. The patient underwent bronchoscopy, yesterday, and there was an obstructing mass, that was biopsied, brush, and washed. This mass, likely represents a bronchogenic carcinoma. The patient will need an outpatient PET scan, for complete staging. He should also have an MRI of the brain. Oncology should be consulted. Additional recommendations and suggestions are forthcoming. Would like to see him in the office, for a pulmonary function test. Pending the r esults of the biopsy, he may be a surgical candidate. Additional recommendations and suggestions are forthcoming. All labs, x-rays, and medications are reviewed. Time with Patient: Less than 30
[2024-07-25] MEDS: hydrALAZINE HCL 20 MG/ML 1 ML VIAL IVP PRN (14:25)
[2024-07-25 16:55] LABS: Glucose,Whole Blood 251 mg/dL (70-110)
--- NOTE | 2024-07-25 17:18 | P.CONS ---
History of Present Illness - Reason for Consult Consult date: 07/25/24 lung mass Requesting physician: Sherron Dejesus - Chief Complaint lung mass - History of Present Illness Mr. Tijerina is a 78-year-old male patient we have been asked to see because of a left upper lobe lung mass. Looks like the patient had a low dose CT chest screening for history of smoking on 06/14/2024. This showed some left upper lobe patchy opacities, recommendation was for follow-up in a month. 07/16/[address] of the chest showing collapse of the left upper lobe, 7.8 mm subpleural left lower lobe nodule. Patient has had a left upper lobe biopsy with Dr. Templeton. Patient has complaints of leg pain, he has a history of bilateral groin stents with vascular, done at [facility]. Left lower extremity Doppler was negative for DVT. Upon meeting patient and his , she reports that he has some possibly early dementia, mostly short-term memory loss, this has been going on for about a year, she qualifies it as minor. Both pt and report loss of appetite, maybe about 10 pound weight loss in the last year, no difficulty in swallowing, chest pain, hemoptysis, new or unusual cough, nausea or vomiting, abdominal pain or cramping, acute changes in bowel or bladder habits, no other neurological symptoms such as numbness or tingling or unilateral weakness reported, pt denies any pain. Review of Systems 10 point ROS is neg except as stated in HPI Past Medical History Past Medical History: Diabetes Mellitus, GI Bleed, Hypertension, Pneumonia Additional Past Medical History / Comment(s): Pneumonia-1984, possitive occult in 07/08/15 History of Any Multi-Drug Resistant Organisms: None Reported Past Surgical History: Appendectomy Additional Past Surgical History / Comment(s): colonoscopy 07/15/15 with Caitlyn Ellsworth, cyst removed from right thumb, Orthoscopic surgery in left knee with Dr Pagan in the Past Anesthesia/Blood Transfusion Reactions: No Reported Reaction Additional Past Anesthesia/Blood Transfusion Reaction / Comm: Never had a blood transfusion Past Psychological History: Anxiety Smoking Status: Former smoker Past Alcohol Use History: None Reported Past Drug Use History: None Reported - Past Family History Mother Additional Family Medical History / Comment(s): Stroke Father Family Medical History: Cancer Additional Family Medical History / Comment(s): Jaw cancer Brother(s) Family Medical History: No Reported History Medications and Allergies Home Medications Medication Instructions Recorded Confirmed Type Aspirin 81 mg PO DAILY 06/23/22 07/22/24 History Empagliflozin [Jardiance] 25 mg PO DAILY 06/23/22 07/22/24 History Rosuvastatin [Crestor] 20 mg PO DAILY 06/23/22 07/22/24 History metFORMIN HCL [Glucophage] 850 mg PO BID-W/MEALS 06/23/22 07/22/24 History Brimonidine Tartrate [Alphagan P 1 drop BOTH EYES BID 07/22/24 07/22/24 History 0.2% Ophth Soln] Irbesartan [Avapro] 300 mg PO DAILY 07/22/24 07/22/24 History Latanoprostene Bunod [Vyzulta] 1 drop BOTH EYES HS 07/22/24 07/22/24 History amLODIPine [Norvasc] 5 mg PO DAILY 07/22/24 07/22/24 History glipiZIDE [Glucotrol] 5 mg PO BID-W/MEALS 07/22/24 07/22/24 History timoloL [timoloL 0.5% Ophth Soln] 1 drop BOTH EYES DAILY 07/22/24 07/22/24 History Allergies Allergy/AdvReac Type Severity Reaction Status Date / Time Sulfa (Sulfonamide AdvReac Rapid Verified 07/22/24 12:14 Antibiotics) Heart Rate Physical Exam Vitals: Vital Signs Temp Pulse Resp BP Pulse Ox 07/25/24 07:05 98.0 F 76 17 159/69 96 07/25/24 04:15 97 07/25/24 04:13 85 L 07/25/24 00:45 98.5 F 73 17 128/52 99 07/25/24 00:10 18 92 L 07/25/24 00:05 18 88 L 07/24/24 18:55 98.3 F 87 16 155/66 92 L 07/24/24 15:20 92 137/62 96 07/24/24 15:05 90 142/52 95 07/24/24 14:50 90 158/62 95 07/24/24 14:45 98.7 F 90 168/68 81 L Intake and Output 07/24/24 07/25/24 07/25/24 22:59 06:59 14:59 Intake Total 300 750 250 Balance 300 750 250 Intake: Oral 300 750 250 Other: # Voids 4 4 - Constitutional General appearance: average body habitus, cooperative, no acute distress - EENT Eyes: anicteric sclerae, edentulous ENT: hearing grossly normal, normal oropharynx - Neck Neck: no lymphadenopathy - Respiratory Respiratory: bilateral: CTA, diminished - Cardiovascular Rhythm: regular Heart sounds: normal: S1, S2 Abnormal Heart Sounds: no systolic murmur, no diastolic murmur, no rub, no S3 Gallop, no S4 Gallop, no click, no other leg Peripheral Edema: bilateral: None - Gastrointestinal General gastrointestinal: no absent bowel sounds, no decreased bowel sounds, no distended, no hepatomegaly, no hyperactive bowel sounds, normal bowel sounds, no organomegaly, no rigid, no scaphoid, soft, no splenomegaly, no tenderness, no umbilical hernia, no ventral hernia - Integumentary Integumentary: normal - Neurologic Neurologic: CNII-XII intact - Musculoskeletal Musculoskeletal: strength equal bilaterally - Psychiatric short term memory issues per Psychiatric: A&O x's 3, appropriate affect, intact judgment & insight Results CBC & Chem 7: 07/24/24 03:13 07/24/24 03:13 Labs: Abnormal Lab Results - Last 24 Hours (Table) 07/24/24 07/24/24 07/25/24 Range/Units 16:54 20:01 06:13 POC Glucose (mg/dL) 223 H 197 H 134 H (70-110) mg/dL 07/25/24 Range/Units 12:23 POC Glucose (mg/dL) 132 H (70-110) mg/dL Microbiology - Last 24 Hours (Table) 07/22/24 12:03 Blood Culture - Preliminary Blood Chest x-ray: report reviewed CT scan - chest: report reviewed Venous US: report reviewed Assessment and Plan (1) Left upper lobe consolidation Current Visit: Yes Status: Acute Priority: High Code(s): J18.1 - LOBAR PNEUMONIA, UNSPECIFIED ORGANISM SNOMED Code(s): 22378636 Plan: Left upper lobe consolidation/mass - Low-dose screening CT of the chest 06/14/2024 reported left upper lobe patchy opacity, recommendations to follow-up in a month. CT of the chest 07/16/2024 reporting collapse of the left upper lobe, 7.8 mm subpleural left lower lobe nodule. Patient is status post bronchoscopy and biopsy today. Pt is asymptomatic. - Discussed with the patient and his the concerning findings on imaging. Also, reviewed the procedure note from Pulmonary, there is report of a visible mass. - Recommendation at this time is to complete staging, including PET and MRI of the brain. Patient and understand and are agreeable to same. -MRI brain ordered - Patient will be scheduled for a PET scan outpatient. Patient and will be contacted with an appointment date and time - Once biopsy results are available and imaging has been completed, pt adn will meet with Medical Oncologist for the diagnosis, prognosis and treatment options. Based on the pathology, molecular testing may be requested on tissue. - All the patient and his 's questions were answered to the best of my ability at this time with the information that we have. Patient is okay from an Oncology standpoint for discharge once he has been cleared by Attending and consulting Physicians.
[2024-07-25 17:33] LABS: Appearance,BF Slightly Cloudy (Clear); RBC, Body Fluid 1900 /UL (0-2000)
--- NOTE | 2024-07-25 20:16 | P.CNOR ---
History of Present Illness - [facility] Consult date: 07/25/24 History of present illness: Patient is a very pleasant 78-year-old male who initially presented to the emergency department with left knee pain. Patient stated he had a ground-level fall and landed on his left knee and hit his head around a month ago. Patient stated his head required several avinash. Patient stated he had conservative management of his left knee. Patient states his left knee have been getting better and he has been ambulating without issue until Monday it became swollen and painful. Patient denies new injury since the fall. Patient had x-rays on 07/25/2024 which demonstrated no sign of acute cortical injury. Moderate to severe tibiofemoral and patellofemoral joint arthritis. Enthesiopathy from the anterior aspect of the patella is noted. Significant arterial vascular calcifications. Orthopedics was consulted for left knee pain. Patient has been treated for multiple medical conditions during this hospital stay. Patient was examined on 07/25/2024 and patient states they no longer have left knee pain. They deny left hip and ankle pain. Past Medical History Past Medical History: Diabetes Mellitus, GI Bleed, Hypertension, Pneumonia Additional Past Medical History / Comment(s): Pneumonia-1984, possitive occult in 07/08/15 History of Any Multi-Drug Resistant Organisms: None Reported Past Surgical History: Appendectomy Additional Past Surgical History / Comment(s): colonoscopy 07/15/15 with Caitlyn Ellsworth, cyst removed from right thumb, Orthoscopic surgery in left knee with Dr Pagna in the Past Anesthesia/Blood Transfusion Reactions: No Reported Reaction Additional Past Anesthesia/Blood Transfusion Reaction / Comm: Never had a blood transfusion Past Psychological History: Anxiety Smoking Status: Former smoker Past Alcohol Use History: None Reported Past Drug Use History: None Reported - Past Family History Mother Additional Family Medical History / Comment(s): Stroke Father Family Medical History: Cancer Additional Family Medical History / Comment(s): Jaw cancer Brother(s) Family Medical History: No Reported History Medications and Allergies Home Medications Medication Instructions Recorded Confirmed Type Aspirin 81 mg PO DAILY 06/23/22 07/22/24 History Empagliflozin [Jardiance] 25 mg PO DAILY 06/23/22 07/22/24 History Rosuvastatin [Crestor] 20 mg PO DAILY 06/23/22 07/22/24 History metFORMIN HCL [Glucophage] 850 mg PO BID-W/MEALS 06/23/22 07/22/24 History Brimonidine Tartrate [Alphagan P 1 drop BOTH EYES BID 07/22/24 07/22/24 History 0.2% Ophth Soln] Irbesartan [Avapro] 300 mg PO DAILY 07/22/24 07/22/24 History Latanoprostene Bunod [Vyzulta] 1 drop BOTH EYES HS 07/22/24 07/22/24 History amLODIPine [Norvasc] 5 mg PO DAILY 07/22/24 07/22/24 History glipiZIDE [Glucotrol] 5 mg PO BID-W/MEALS 07/22/24 07/22/24 History timoloL [timoloL 0.5% Ophth Soln] 1 drop BOTH EYES DAILY 07/22/24 07/22/24 History Allergies Allergy/AdvReac Type Severity Reaction Status Date / Time Sulfa (Sulfonamide AdvReac Rapid Verified 07/22/24 12:14 Antibiotics) Heart Rate Physical Examination Patient resting bed. No acute distress. Patient had nonlabored breathing. Patient had no pain with logroll. Inspection no knee swelling. No knee effusion. No sign of erythema. No fluctuance palpated. Palpation: Patient denied any tenderness to palpation over the left hip, thigh, knee, leg, ankle, or foot. Patient is able to perform a left straight leg raise. Patient had firm endpoints to ACL, PCL, MCL, and LCL testing. Denies calf pain to palpation. Negative Homans' sign. Dorsalis pedis pulse palpable, and capillary refill under 2 seconds. Patient states sensation to light touch throughout the left lower extremity. Results - Labs Labs: Abnormal Lab Results - Last 24 Hours (Table) 07/25/24 07/25/24 07/25/24 Range/Units 06:13 07:32 12:23 POC Glucose (mg/dL) 134 H 132 H (70-110) mg/dL Fluid Appearance Slightly Cloudy A (Clear) 07/25/24 Range/Units 16:53 POC Glucose (mg/dL) 251 H (70-110) mg/dL Fluid Appearance (Clear) Microbiology - Last 24 Hours (Table) 07/22/24 12:03 Blood Culture - Preliminary Blood H & H 05/05/25 05/07/25 Range/Units 11:55 03:13 Hgb 10.4 L 10.0 L (13.0-17.0) g/dL Hct 32.4 L 32.7 L (39.6-50.0) % Coagulation 07/22/24 Range/Units 11:55 INR 0.9 (<1.2) Result Diagrams: 07/26/24 04:58 07/26/24 04:58 Assessment and Plan Assessment: Left knee osteoarthritis Plan: Patient denies any pain in their left knee and states their pain and swelling has resolved. Patient I discussed possibility of knee sprain due to the ground- level fall. Patient and I discussed left knee x-ray findings of osteoarthritis. Patient denies feelings of instability of the left knee when they ambulate. We discussed conservative treatment measures of ice, physical therapy. We discussed patient can follow-up as needed on an outpatient basis if they would like to pursue treatment for the left knee osteoarthritis. Thank you for the consult. Dictation was produced using [employer] dictation software, please excuse any grammatical, word or spelling errors. Patient was seen and independently evaluated by myself and i agree with the above history, exam and plan. Tejas eHath MD
[2024-07-26 01:03] VITALS: RESP 18
[2024-07-26 06:10] LABS: Glucose,Whole Blood 145 mg/dL (70-110)
[2024-07-26 06:10] LABS: Glucose,Whole Blood 128 mg/dL (70-110)
[2024-07-26 06:10] LABS: Glucose,Whole Blood 138 mg/dL (70-110)
[2024-07-26 08:12] VITALS: BP 151/68; PULSE 87; TEMP 98.9
[2024-07-26 08:18] LABS: Basophils # (A) 0.05 X 10*3/uL (0.00-0.10); Basophils % (A) 0.6 %; Eosinophils # (A) 0.38 X 10*3/uL (0.04-0.35); Eosinophils % (A) 4.7 %; HCT 35.8 % (39.6-50.0); HGB 10.7 g/dL (13.0-17.0); Lymphocytes # (A) 0.93 X 10*3/uL (0.90-5.00); Lymphocytes % (A) 11.5 %; MCH 27.4 pg (27.0-32.0); MCHC 29.9 g/dL (32.0-37.0); MCV 91.8 FL (80.0-97.0); Mean Platelet Volume 9.5 FL (9.5-12.2); Monocytes # (A) 0.86 X 10*3/uL (0.20-1.00); Monocytes % (A) 10.6 %; NRBC Per 100 WBC 0 X 10*3/uL (0.00-0.01); Neutrophils # (A) 5.83 X 10*3/uL (1.80-7.70); Neutrophils % (A) 72.2 %; Platelet Count 381 X 10*3/uL (140-440); RDW 16.4 % (11.5-14.5); WBC 8.08 X 10*3/uL (4.50-10.00)
[2024-07-26 08:25] LABS: ALT 10 U/L (10-49); AST 6 U/L (14-35); Albumin 3.3 g/dL (3.8-4.9); Albumin/Globulin Ratio 1.14 Ratio (1.60-3.17); Alkaline Phosphatase 69 U/L (41-126); BUN/Creat Ratio 15.25 Ratio (12.00-20.00); Blood Urea Nitrogen 12.2 mg/dL (9.0-27.0); Calcium 8.8 mg/dL (8.7-10.3); Carbon Dioxide 27.3 mmol/L (21.6-31.8); Chloride 106 mmol/L (96-109); Globulin 2.9 g/dL (1.6-3.3); Glucose 125 mg/dL (70-110); Potassium 4.6 mmol/L (3.5-5.5); Sodium 141 mmol/L (135-145); Total Bilirubin <0.2 mg/dL (0.3-1.2); Total Protein 6.2 g/dL (6.2-8.2)
[2024-07-26 09:23] LABS: Nucleated Cells, Body Fluid 1200 /UL
--- NOTE | 2024-07-26 09:31 | P.PN ---
Subjective Progress Note Date: 07/26/24 Lc Tijerina, is a 78-year-old male who presented to [facility] emergency room with a chief complaint of left knee pain patient stated that he had a fall about 1 month ago and injured his left knee and had a head laceration, he improved gradually however he is still having significant pain in the left knee and decided to come to emergency room. Additionally patient has been followed as outpatient for left upper lobe infiltrate, he received a course of oral antibiotic as outpatient, he had a CT scan of the chest on 07/16/2024 that revealed : Consolidation and collapse of the left upper lobe, patient was evaluated in the emergency room and decision was made to proceed with admission and consultation for pulmonary. He was started on IV antibiotic in the emergency room. He was evaluated in the emergency room vital examination on presentation revealed a temperature of 97.9 pulse 104 respiration 18 blood pressure 127/61 pulse ox 94% on room air Laboratory data reveals a white blood count of 10.6 hemoglobin 10.4 platelet count 324 sodium 136 potassium 4.8 chloride 102 CO2 23 BUN 39 creatinine 0.92 influenza A and B RSV and COVID-19 PCR were negative Testing in the emergency room revealed chest x-ray done in the emergency room revealed ongoing left upper lobe collapse Patient was admitted to medical floor for further evaluation and treatment On 07/23/2024 patient is alert and oriented x 3. Per pulmonary services concerns about possible malignancy. Patient will likely need bronchoscopy with airway examination and biopsy per pulmonary. Patient denies chest pain or shortness of breath. Patient denies nausea vomiting or diarrhea. Patient denies any urinary burning or frequency. Current vital signs temp 98.5, heart rate 75, respiratory rate 17, blood pressure 137/57 with a pulse ox of 95% on room air On 07/24/2024 patient was seen and examined on the medical floor he is alert and oriented x 3 in no apparent distress there is no fever or chills no headache or dizziness patient is complaining of occasional cough and shortness of breath with activity otherwise he denies any complaints, no chest pain, no nausea or vomiting no abdominal pain no diarrhea and no urinary symptoms, at this time we are awaiting plans for bronchoscopy. On 07/25/2024 patient is alert and oriented x 3. Status post bronchoscopy yesterday. Awaiting further recommendations from pulmonary standpoint. Patient remains on IV Rocephin. Current vital signs temp 98.0, heart 76, respiratory rate 17, blood pressure 159/69 with pulse ox of 96% on 2 L. Patient denies chest pain or shortness of breath. Patient denies nausea vomiting or diarrhea. Patient denies any urinary burning or frequency On 07/26/2024 patient is alert and oriented x 3. Oncology services were consulted and MRI of the brain has been ordered. Awaiting further recommendations from pulmonary and oncology services knee x-ray completed showing no acute process orthopedic services were consulted and report reviewed. Patient denies chest pain or shortness of breath. Patient denies nausea vomiting or diarrhea. Patient denies any urinary burning or frequency. Patient will need evaluation f or possible home O2 Objective - Vital Signs Vital signs: Vital Signs Temp 98.9 F 07/26/24 06:54 Pulse 87 07/26/24 06:54 Resp 18 07/26/24 06:54 BP 151/68 07/26/24 06:54 Pulse Ox 90 L 07/26/24 06:54 FiO2 Intake & Output 07/25/24 07/26/24 07/26/24 18:59 06:59 18:59 Intake Total 250 800 Balance 250 800 Intake: Oral 250 800 Other: # Voids 4 4 # Bowel Movements 1 - Exam In general patient is alert and oriented x 3 in no distress HEENT head normocephalic and atraumatic Neck is supple no JVD no goiter no lymphadenopathy no carotid bruit Chest examination reveals a crackles bilaterally with decreased respiratory sounds on the left Cardiac exam reveals regular heart sounds S1 and S2 no gallops no murmur Abdomen is soft nontender no organomegaly with normal bowel sounds Extremity exam reveals no edema no cyanosis or clubbing Neurological examination reveals no gross focal deficits - Labs CBC & Chem 7: 07/26/24 04:58 07/26/24 04:58 Labs: Abnormal Lab Results - Last 24 Hours (Table) 07/25/24 07/25/24 07/25/24 Range/Units 07:32 12:23 16:53 RBC (4.40-5.60) X 10*6/uL Hgb (13.0-17.0) g/dL Hct (39.6-50.0) % MCHC (32.0-37.0) g/dL RDW (11.5-14.5) % Eosinophils # (0.04-0.35) X 10*3/uL Glucose (70-110) mg/dL POC Glucose (mg/dL) 132 H 251 H (70-110) mg/dL Total Bilirubin (0.3-1.2) mg/dL AST (14-35) U/L Albumin (3.8-4.9) g/dL Albumin/Globulin Ratio (1.60-3.17) Ratio Fluid Appearance Slightly Cloudy A (Clear) 07/25/24 07/25/24 07/26/24 Range/Units 20:07 20:58 04:58 RBC 3.90 L (4.40-5.60) X 10*6/uL Hgb 10.7 L (13.0-17.0) g/dL Hct 35.8 L (39.6-50.0) % MCHC 29.9 L (32.0-37.0) g/dL RDW 16.4 H (11.5-14.5) % Eosinophils # 0.38 H (0.04-0.35) X 10*3/uL Glucose (70-110) mg/dL POC Glucose (mg/dL) 128 H 145 H (70-110) mg/dL Total Bilirubin (0.3-1.2) mg/dL AST (14-35) U/L Albumin (3.8-4.9) g/dL Albumin/Globulin Ratio (1.60-3.17) Ratio Fluid Appearance (Clear) 07/26/24 07/26/24 Range/Units 04:58 06:08 RBC (4.40-5.60) X 10*6/uL Hgb (13.0-17.0) g/dL Hct (39.6-50.0) % MCHC (32.0-37.0) g/dL RDW (11.5-14.5) % Eosinophils # (0.04-0.35) X 10*3/uL Glucose 125 H (70-110) mg/dL POC Glucose (mg/dL) 138 H (70-110) mg/dL Total Bilirubin <0.2 L (0.3-1.2) mg/dL AST 6 L (14-35) U/L Albumin 3.3 L (3.8-4.9) g/dL Albumin/Globulin Ratio 1.14 L (1.60-3.17) Ratio Fluid Appearance (Clear) Microbiology - Last 24 Hours (Table) 07/25/24 07:32 Gram Stain - Preliminary Pleural Fluid 07/22/24 12:03 Blood Culture - Preliminary Blood Assessment and Plan Plan: Pneumonia with left upper lobe collapse, possible postobstructive pneumonia, pulmonary consultation requested Lung Mass seen on bronchoscopy. Oncology services consulted MRI of the brain ordered Recent fall with left knee pain. Ultrasound completed showing Sanchez's cyst. X- ray of knee negative Underlying history of hypertension Underlying history of diabetes mellitus Underlying history of hyperlipidemia Underlying history of gastroesophageal reflux disease Underlying history of tobacco abuse At this time patient was seen and examined Home medications reviewed and reordered Patient was counseled in length in regard to smoking cessation Pulmonary consultation was requested Patient was started on IV antibiotic in the emergency room Status post bronchoscopy Will follow closely
[2024-07-26 11:52] LABS: Glucose,Whole Blood 108 mg/dL (70-110)
--- NOTE | 2024-07-26 12:43 | P.PN ---
Subjective Progress Note Date: 07/26/24 Patient is 78-year-old male with documented past medical history significant for hypertension, hyperlipidemia, diabetes mellitus, and heavy tobacco use. He is a questionable historian, may have some underlying dementia. His primary care provider is Dr. Dejesus. We are consulted for abnormal chest CT findings and concern for possible malignancy and/or postobstructive pneumonia. Presented to the emergency department yesterday with a chief complaint of left lower extremity pain and recent fall. Ultrasound of the lower extremity significant for 3.4 cm Sanchez's cyst, with additional elongated fluid collection measuring up to 12.3 cm along the medial calf. Possible concern for ruptured Sanchez's cyst, p lantaris tear, and/or gastrocnemius myofascial tear. Venous Doppler was negative for DVT on the left. Unrelated, patient had an outpatient low-dose chest CT for lung cancer screening done May, showing a patchy consolidative opacity throughout the left upper lobe and lingula. Reportedly, no distinct pulmonary nodule was seen, however, could not be excluded. Patient states he was recently treated for pneumonia on outpatient basis. Follow-up chest CT done 07/16/2024 showing complete left upper lobe atelectasis/collapse, with possible obstructive endobronchial lesion. Postobstructive pneumonia was not excluded. Patient currently being evaluated on the general medical floor. Chest x-ray continues to show left upper lobe collapse. Patient denies any infectious symptoms. Denies any shortness of breath, cough, sputum production, hemoptysis, chest pain. Denies fevers or chills. He does have significant smoking history, reportedly 1 pack/week up until 3 weeks ago. No documented h istory of COPD. 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 Denies any recent weight loss. States that his father from lung cancer. CBC: WBC count 10.6, hemoglobin 10.4, platelets 324. CMP: Sodium 136, potassium 4.8, chloride 102, serum bicarb 23, BUN 39, creatinine 0.92, glucose 150. LFTs unremarkable. Procalcitonin level 0.26. He was started on antibiotics in the form of azithromycin and Rocephin in the ED. Patient currently resting comfortably on room air. Afebrile. Vitals are stable. Progress note dated July 24, 2024. 78-year-old male admitted with a diagnosis of possible postobstructive pneumonia, left upper lobe. The patient is a heavy smoker. The patient is undergoing bronchoscopy today. Concerned about an endobronchial lesion, causing postobstructive pneumonia. The patient does have a history of dementia. Clinically, he is stable. He is on room air. He is getting saline at 25 cc an hour. Current laboratory data includes a white count of 8.6, hemoglobin 10, hematocrit 32.7, and a platelet count of 387,000. Sodium 139, potassium 4.6, chlorides 106, CO2 23, BUN 16, creatinine 0.9. Glucose is 117. The patient continues on Rocephin. Progress note dated July 25, 2024. 78-year-old male who underwent bronchoscopy yesterday. The patient was found to have a large tumor obstructing the left upper lobe bronchus. Biopsies were done, along with washings and brushings. 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 Currently, the patient is seen in room 474. He is on 2 L. Is not receiving any IV fluids. The bronchoscopy was performed on July 24. No new labs today. The patient was admitted with a diagnosis of postobstructive pneumonia. The patient is seen today July 26, 2024 in follow-up on the regular medical floor. He is currently sitting up in bed. Awake and alert in no acute distress. Maintaining O2 saturations in the 90s on room air oxygen. He is afebrile. Hemodynamically stable. Bronchial wash cultures were positive for viridans Streptococcus group. Biopsies still pending. White count 8.0. Hemoglobin 10.7. Platelets 381. Sodium 141. Potassium 4.6. Bicarb 27. BUN 12. Creatinine 0.8. Glucose 125. MRI of the brain is pending. Objective - Vital Signs Vital signs: Vital Signs Temp 98.9 F 07/26/24 06:54 Pulse 87 07/26/24 06:54 Resp 18 07/26/24 06:54 BP 151/68 07/26/24 06:54 Pulse Ox 90 L 07/26/24 06:54 FiO2 Intake & Output 07/25/24 07/26/24 07/26/24 18:59 06:59 18:59 Intake Total 250 800 Balance 250 800 Intake: Oral 250 800 Other: # Voids 4 4 # Bowel Movements 1 - Exam GENERAL EXAM: Alert, pleasant 78-year-old male patient, on room air oxygen, resting in bed, comfortable in no apparent distress. HEAD: Normocephalic. EYES: Normal reaction of pupils, equal size. NOSE: Clear with pink turbinates. THROAT: No erythema or exudates. NECK: No masses, no JVD. CHEST: No chest wall deformity. LUNGS: Equal air entry with few scattered rhonchi. CVS: S1 and S2 normal with no audible murmur, regular rhythm. ABDOMEN: No hepatosplenomegaly, normal bowel sounds, no guarding or rigidity. SPINE: No scoliosis or deformity SKIN: No rashes CENTRAL NERVOUS SYSTEM: No focal deficits, tone is normal in all 4 extremities. EXTREMITIES: There is no peripheral edema. No clubbing, no cyanosis. Peripheral pulses are intact. - Labs CBC & Chem 7: 07/26/24 04:58 07/26/24 04:58 Labs: Abnormal Lab Results - Last 24 Hours (Table) 07/25/24 07/25/24 07/25/24 Range/Units 07:32 16:53 20:07 RBC (4.40-5.60) X 10*6/uL Hgb (13.0-17.0) g/dL Hct (39.6-50.0) % MCHC (32.0-37.0) g/dL RDW (11.5-14.5) % Eosinophils # (0.04-0.35) X 10*3/uL Glucose (70-110) mg/dL POC Glucose (mg/dL) 251 H 128 H (70-110) mg/dL Total Bilirubin (0.3-1.2) mg/dL AST (14-35) U/L Albumin (3.8-4.9) g/dL Albumin/Globulin Ratio (1.60-3.17) Ratio Fluid Appearance Slightly Cloudy A (Clear) 07/25/24 07/26/24 07/26/24 Range/Units 20:58 04:58 04:58 RBC 3.90 L (4.40-5.60) X 10*6/uL Hgb 10.7 L (13.0-17.0) g/dL Hct 35.8 L (39.6-50.0) % MCHC 29.9 L (32.0-37.0) g/dL RDW 16.4 H (11.5-14.5) % Eosinophils # 0.38 H (0.04-0.35) X 10*3/uL Glucose 125 H (70-110) mg/dL POC Glucose (mg/dL) 145 H (70-110) mg/dL Total Bilirubin <0.2 L (0.3-1.2) mg/dL AST 6 L (14-35) U/L Albumin 3.3 L (3.8-4.9) g/dL Albumin/Globulin Ratio 1.14 L (1.60-3.17) Ratio Fluid Appearance (Clear) 07/26/24 Range/Units 06:08 RBC (4.40-5.60) X 10*6/uL Hgb (13.0-17.0) g/dL Hct (39.6-50.0) % MCHC (32.0-37.0) g/dL RDW (11.5-14.5) % Eosinophils # (0.04-0.35) X 10*3/uL Glucose (70-110) mg/dL POC Glucose (mg/dL) 138 H (70-110) mg/dL Total Bilirubin (0.3-1.2) mg/dL AST (14-35) U/L Albumin (3.8-4.9) g/dL Albumin/Globulin Ratio (1.60-3.17) Ratio Fluid Appearance (Clear) Microbiology - Last 24 Hours (Table) 07/25/24 07:32 Acid Fast Bacilli Smear - Preliminary Pleural Fluid 07/25/24 07:32 Gram Stain - Preliminary Pleural Fluid Body Fluid Culture - Preliminary Viridans streptococcus group 07/22/24 12:03 Blood Culture - Preliminary Blood Assessment and Plan Assessment: Left upper lobe atelectasis/collapse, with postobstructive pneumonia, secondary to a mass obstructing the left upper lobe Recent outpatient treatment for pneumonia History of heavy tobacco use Familial history of lung cancer Hypertension History of hyperlipidemia History of diabetes mellitus History of severe dementia Sanchez's cyst with possible rupture Plan: The patient was seen and evaluated Labs and medications reviewed Currently stable on room air oxygen Awaiting MRI of the brain Recommending outpatient PET scan Medical oncology is following Plan is to return home to his at discharge I have personally seen and examined the patient, performed the documentation and the assessment and plan as written. Number of minutes spent on the visit: 10 Dictation was produced using [employer] dictation software. Please excuse any grammatical, word or spelling errors.
--- NOTE | 2024-07-26 13:43 | MR ---
EXAMINATION TYPE: MR brain wo/w con DATE OF EXAM: 07/26/2024 COMPARISON: CT brain June 27, 2024 HISTORY: Lung mass, staging. TECHNIQUE: Multiplanar, multisequence images of the brain and brainstem is performed without and with IV contras t, utilizing 6.5 mL intravenous Gadobutrol . FINDINGS: Diffusion weighted images demonstrate no evidence of a recent infarct or other diffusion ab normality. There is no extra-axial fluid collection or significant white matter signal abnormality. Moderate ventricular and sulcal prominence is redemonstrated. Midline structures demonstrate normal morphology. The craniocervical junction appears within normal limits. Post contrast images demonstrate no abnormal enhancement or enhancing intraparenchymal salo s. The dural venous sinuses appear patent. Mild mucosal thickening inferior left maxillary sinus othe rwise paranasal sinuses are clear. The globes are intact bilaterally. IMPRESSION: No suspicious enhancing intraparenchymal masses to suggest metastatic disease to the brai n. [facility], , 07/26/2024 1:41 PM
--- NOTE | 2024-07-26 14:29 | P.DS ---
Providers Date of admission: 07/22/24 12:46 Expected date of discharge: 07/26/24 Attending physician: Sherron Dejesus Consults: 07/22/24 11:10 Consult Physician Urgent Consulting Provider: Jim Templeton Consult Reason/Comments: Abnormal chest CT on 07/16, postobstructive pneumonitis, possible malignancy Do you want consulting provider notified?: Yes 07/25/24 09:26 Consult Physician Routine Consulting Provider: Tejas Heath Consult Reason/Comments: left knee pain Do you want consulting provider notified?: Yes 07/25/24 09:27 Consult Physician Routine Consulting Provider: Bradford Baer Consult Reason/Comments: lung tumor Do you want consulting provider notified?: Yes Primary care physician: Sherron Dejesus [facility] Course: Diagnosis on discharge: Pneumonia with left upper lobe collapse, possible postobstructive pneumonia, pulmonary consultation requested Lung Mass seen on bronchoscopy. Oncology services consulted MRI of the brain ordered Recent fall with left knee pain. Ultrasound completed showing Sanchez's cyst. X- ray of knee negative Underlying history of hypertension Underlying history of diabetes mellitus Underlying history of hyperlipidemia Underlying history of gastroesophageal reflux disease Underlying history of tobacco abuse Hospital course: Lc Tijerina, is a 78-year-old male who presented to [facility] emergency room with a chief complaint of left knee pain patient stated that he had a fall about 1 month ago and injured his left knee and had a head laceration, he improved gradually however he is still having significant pain in the left knee and decided to come to emergency room. Additionally patient has been followed as outpatient for left upper lobe infiltrate, he received a course of oral antibiotic as outpatient, he had a CT scan of the chest on 07/16/2024 that revealed : Consolidation and collapse of the left upper lobe, patient was evaluated in the emergency room and decision was made to proceed with admission and consultation for pulmonary. He was started on IV antibiotic in the emergency room. He was evaluated in the emergency room vital examination on presentation revealed a temperature of 97.9 pulse 104 respiration 18 blood pressure 127/61 pulse ox 94% on room air Laboratory data reveals a white blood count of 10.6 hemoglobin 10.4 platelet count 324 sodium 136 potassium 4.8 chloride 102 CO2 23 BUN 39 creatinine 0.92 influenza A and B RSV and COVID-19 PCR were negative Testing in the emergency room revealed chest x-ray done in the emergency room revealed ongoing left upper lobe collapse Patient was admitted to medical floor for further evaluation and treatment On 07/23/2024 patient is alert and oriented x 3. Per pulmonary services concerns about possible malignancy. Patient will likely need bronchoscopy with airway examination and biopsy per pulmonary. Patient denies chest pain or shortness of breath. Patient denies nausea vomiting or diarrhea. Patient denies any urinary burning or frequency. Current vital signs temp 98.5, heart rate 75, respiratory rate 17, blood pressure 137/57 with a pulse ox of 95% on room air On 07/24/2024 patient was seen and examined on the medical floor he is alert and oriented x 3 in no apparent distress there is no fever or chills no headache or dizziness patient is complaining of occasional cough and shortness of breath with activity otherwise he denies any complaints, no chest pain, no nausea or vomiting no abdominal pain no diarrhea and no urinary symptoms, at this time we are awaiting plans for bronchoscopy. On 07/25/2024 patient is alert and oriented x 3. Status post bronchoscopy yesterday. Awaiting further recommendations from pulmonary standpoint. Patient remains on IV Rocephin. Current vital signs temp 98.0, heart 76, respiratory rate 17, blood pressure 159/69 with pulse ox of 96% on 2 L. Patient denies chest pain or shortness of breath. Patient denies nausea vomiting or diarrhea. Patient denies any urinary burning or frequency On 07/26/2024 patient is alert and oriented x 3. Oncology services were consulted and MRI of the brain has been ordered. Awaiting further recommendations from pulmonary and oncology services knee x-ray completed showing no acute process orthopedic services were consulted and report reviewed. Patient denies chest pain or shortness of breath. Patient denies nausea vomiting or diarrhea. Patient denies any urinary burning or frequency. Patient will need evaluation for possible home O2 Plan - Discharge Summary Discharge Rx Participant: Yes New Discharge Prescriptions: New Amoxic-Pot Clav 875-125Mg [Augmentin 875-125] 1 each PO Q12HR 10 Days #20 tab Continue Aspirin 81 mg PO DAILY Rosuvastatin [Crestor] 20 mg PO DAILY metFORMIN HCL [Glucophage] 850 mg PO BID-W/MEALS amLODIPine [Norvasc] 5 mg PO DAILY glipiZIDE [Glucotrol] 5 mg PO BID-W/MEALS Empagliflozin [Jardiance] 25 mg PO DAILY Brimonidine Tartrate [Alphagan P 0.2% Ophth Soln] 1 drop BOTH EYES BID timoloL [timoloL 0.5% Ophth Soln] 1 drop BOTH EYES DAILY Latanoprostene Bunod [Vyzulta] 1 drop BOTH EYES HS Irbesartan [Avapro] 300 mg PO DAILY Discharge Medication List Aspirin 81 mg PO DAILY 06/23/22 [History] Empagliflozin [Jardiance] 25 mg PO DAILY 06/23/22 [History] Rosuvastatin [Crestor] 20 mg PO DAILY 06/23/22 [History] metFORMIN HCL [Glucophage] 850 mg PO BID-W/MEALS 06/23/22 [History] Brimonidine Tartrate [Alphagan P 0.2% Ophth Soln] 1 drop BOTH EYES BID 07/22/24 [History] Irbesartan [Avapro] 300 mg PO DAILY 07/22/24 [History] Latanoprostene Bunod [Vyzulta] 1 drop BOTH EYES HS 07/22/24 [History] amLODIPine [Norvasc] 5 mg PO DAILY 07/22/24 [History] glipiZIDE [Glucotrol] 5 mg PO BID-W/MEALS 07/22/24 [History] timoloL [timoloL 0.5% Ophth Soln] 1 drop BOTH EYES DAILY 07/22/24 [History] Amoxic-Pot Clav 875-125Mg [Augmentin 875-125] 1 each PO Q12HR 10 Days #20 tab 07/26/24 [Rx] Follow up Appointment(s)/Referral(s): Bradford Baer [STAFF PHYSICIAN] - 3 Weeks (Staff is sched PET scan and f/u appt with Oncologist. Those appts will be communicated with pt once they are made) Sherron Dejesus MD [Primary Care Provider] - 1-2 days (Office closed. Please call office Monday for your appointment.)
[2024-07-26] MEDS ORDERED: AMOXIC-POT CLAV 875-125MG 1 EACH TAB PO SCH (21:00)
== END 2024-07-26 14:52 | disposition home or self-care (01) | DRG 194 ==
LOC: EC 09:59 → 4SSUR 12:46
PROVIDERS: ADMIT Internal Medicine; ATTEND Internal Medicine
PROC: 0BB88ZX Excision of Left Upper Lobe Bronchus, Via Natural or Artificial Opening Endoscopic, Diagnostic (ICD-10-PCS; principal; 2024-07-24 13:20)
PROC: 0B988ZX Drainage of Left Upper Lobe Bronchus, Via Natural or Artificial Opening Endoscopic, Diagnostic (ICD-10-PCS; 2024-07-24 13:20)
DX: J18.9 Pneumonia, unspecified organism (principal); C34.12 Malignant neoplasm of upper lobe, left bronchus or lung; F03.C4 Unspecified dementia, severe, with anxiety; E11.9 Type 2 diabetes mellitus without complications; Z11.52 Encounter for screening for COVID-19; I10 Essential (primary) hypertension; J98.11 Atelectasis; J98.19 Other pulmonary collapse; K21.9 Gastro-esophageal reflux disease without esophagitis; E78.5 Hyperlipidemia, unspecified; F17.210 Nicotine dependence, cigarettes, uncomplicated; M17.12 Unilateral primary osteoarthritis, left knee; M71.22 Synovial cyst of popliteal space [Baker], left knee; Z71.6 Tobacco abuse counseling; Z79.82 Long term (current) use of aspirin; Z79.84 Long term (current) use of oral hypoglycemic drugs; Z79.899 Other long term (current) drug therapy; Z85.118 Personal history of other malignant neoplasm of bronchus and lung; Z88.2 Allergy status to sulfonamides; Z80.1 Family history of malignant neoplasm of trachea, bronchus and lung; Z87.01 Personal history of pneumonia (recurrent); Z87.19 Personal history of other diseases of the digestive system
CPT/HCPCS: 31623; 31624; 31625; 36415; 70553; 71046; 80053; 83605; 84145; 85025; 85610; 85730; 86140; 87040; 87070; 87116; 87205; 87206; 87449; 87636; 88104; 88108; 88305; 89050; 93005; 96365; 96367; 99285; 99406

== ENCOUNTER → 2024-09-18 | Outpatient (CLI) | payer MEDICARE ==
[2024-09-18 16:00] LABS: INR 1.0 (<1.2); Partial Thromboplastin Time 23.8 sec (22.0-30.0); Prothrombin Time 10.8 sec (10.0-12.5)
[2024-09-18 18:35] LABS: Basophils # (A) 0.04 X 10*3/uL (0.00-0.10); Basophils % (A) 0.2 %; Eosinophils # (A) 0.04 X 10*3/uL (0.04-0.35); Eosinophils % (A) 0.2 %; HCT 33.5 % (39.6-50.0); HGB 10.1 g/dL (13.0-17.0); Immature Grans, Automated 0.70 %; Lymphocytes # (A) 1.30 X 10*3/uL (0.90-5.00); Lymphocytes % (A) 7.4 %; MCH 27.4 pg (27.0-32.0); MCHC 30.1 g/dL (32.0-37.0); MCV 91.0 FL (80.0-97.0); Monocytes # (A) 1.46 X 10*3/uL (0.20-1.00); Monocytes % (A) 8.3 %; NRBC Per 100 WBC 0 X 10*3/uL (0.00-0.01); Neutrophils # (A) 14.61 X 10*3/uL (1.80-7.70); Neutrophils % (A) 83.2 %; Platelet Count 477 X 10*3/uL (140-440); RBC 3.68 X 10*6/uL (4.40-5.60); RDW 17.0 % (11.5-14.5); WBC 17.57 X 10*3/uL (4.50-10.00)
[2024-09-18 18:51] LABS: Anion Gap 16.50 mmol/L (4.00-12.00); Blood Urea Nitrogen 37.2 mg/dL (9.0-27.0); Carbon Dioxide 21.5 mmol/L (21.6-31.8); Chloride 103 mmol/L (96-109); Glucose 210 mg/dL (70-110); Potassium 5.0 mmol/L (3.5-5.5); Sodium 141 mmol/L (135-145)
[2024-09-18 19:08] LABS: Bilirubin,Urine Negative (Negative); Blood,Urine Trace (Negative); Color,Urine Yellow (Yellow); Ketones,Urine Negative (Negative); Nitrite,Urine Negative (Negative); PH, Urine 5.0; Specific Gravity,Urine 1.030 (1.001-1.030); Urobilinogen,Urine 0.2 E.U./DL
[2024-09-18 19:46] LABS: Bacteria,Urine None Seen (None Seen)
== END | disposition home or self-care (01) ==
LOC: LABPAT 14:55
PROVIDERS: ATTEND Family Medicine
DX: Z01.812 Encounter for preprocedural laboratory examination (principal); E66.01 Morbid (severe) obesity due to excess calories; R58 Hemorrhage, not elsewhere classified; R53.83 Other fatigue
CPT/HCPCS: 80051; 81001; 82565; 82947; 84520; 85025; 85610; 85730; 86850; 86900; 86901; 87086; 93005